=== PATIENT | female | born 1965 | race Caucasian/White ===

== ENCOUNTER 2017-02-18 08:35 | Emergency (ER) | payer OTHER ==
[2017-02-18] MEDS ORDERED: SODIUM CHLORIDE 0.9% 1,000 ML IV ONE (09:00)
--- NOTE | 2017-02-18 09:18 | ED ---
Female Urogenital HPI - General Chief complaint: Vaginal Bleeding Stated complaint: FEMALE Time Seen by Provider: 02/18/17 08:50 Source: patient, RN notes reviewed Mode of arrival: ambulatory Limitations: no limitations - History of Present Illness Initial comments: 51-year-old female presents emergency Department chief complaint vaginal bleeding. Patient states she's been having bleeding for the last 2 and half weeks. She states she had a normal menstrual cycle that was approximately one week long stopped for 1 day insert rebleeding. Patient states the bleeding today is worse. She states she is passing large clots and states that she is bleeding through one to 2 pads at a time and having to change every 40 minutes. Patient states that she does not feel lightheaded or dizzy at this time. Denies any shortness of breath or chest pain. Patient denies any nausea, vomiting, diarrhea constipation. Patient states that she's had a prior bowel resection and in the past. Patient states she does takes for also currently because of history of blood clots after her surgery. Patient states that she's never had any bleeding like this in the past. She states she has mild abdominal cramping lower aspect. Last Menstrual Period: 02/18/17 - Related Data Home Medications Medication Instructions Recorded Confirmed Digoxin [Lanoxin] 250 mcg PO DAILY 02/18/17 02/18/17 Furosemide [Lasix] 40 mg PO DAILY 02/18/17 02/18/17 HYDROcodone/APAP 10-325MG [[place] 1 tab PO Q4HR PRN 02/18/17 02/18/17 10-325] Metoprolol Tartrate [Lopressor] 50 mg PO BID 02/18/17 02/18/17 QUEtiapine FUMARATE [SEROquel] 200 mg PO HS 02/18/17 02/18/17 QUEtiapine [SEROquel] 50 mg PO HS 02/18/17 02/18/17 Rivaroxaban [Xarelto] 20 mg PO HS 02/18/17 02/18/17 Spironolactone [Aldactone] 25 mg PO HS 02/18/17 02/18/17 Topiramate [Topamax] 25 mg PO HS 02/18/17 02/18/17 Allergies Allergy/AdvReac Type Severity Reaction Status Date / Time warfarin sodium Allergy GETS RED Verified 02/18/17 09:09 [From Coumadin] BUMPS ALL OVER Review of Systems ROS Statement: Those systems with pertinent positive or pertinent negative responses have been documented in the HPI. ROS Other: All systems not noted in ROS Statement are negative. Past Medical History Past Medical History: Heart Failure, CVA/TIA, Deep Vein Thrombosis (DVT), Hypertension, Pulmonary Embolus (PE) Additional Past Medical History / Comment(s): BACK ISSUES, IRREGULAR HEART BEAT , BOWEL OBSTRUCTION History of Any Multi-Drug Resistant Organisms: None Reported Past Surgical History: Appendectomy, Bowel Resection, Section Additional Past Surgical History / Comment(s): RIGHT FALLOPIAN TUBE REMOVED, PREVIOUS BOWEL OBSTRUCTION Past Anesthesia/Blood Transfusion Reactions: No Reported Reaction Past Psychological History: No Psychological Hx Reported Smoking Status: Never smoker Past Alcohol Use History: None Reported Past Drug Use History: None Reported General Exam Limitations: no limitations General appearance: alert, in no apparent distress Head exam: Present: atraumatic, normocephalic, normal inspection Respiratory exam: Present: normal lung sounds bilaterally. Absent: respiratory distress, wheezes, rales, rhonchi, stridor Cardiovascular Exam: Present: regular rate, normal rhythm, normal heart sounds. Absent: systolic murmur, diastolic murmur, rubs, gallop, clicks GI/Abdominal exam: Present: soft, normal bowel sounds. Absent: distended, tenderness, guarding, rebound, rigid Neurological exam: Present: alert, oriented X3, CN II-XII intact Skin exam: Present: warm, dry, normal color Course Vital Signs 02/18/17 08:37 Temperature 97.1 F L Pulse Rate 90 Respiratory 20 Rate Blood Pressure 147/67 O2 Sat by Pulse 98 Oximetry Medical Decision Making - Medical Decision Making 51-year-old female presents emergency department for vaginal bleeding. Patient' s hemoglobin is within normal limits. Patient does have thickened endometrial lining and dysfunctional uterine bleeding at this time. Refuses discussed in length yet patient is taking Xarelto currently she needs to contact Dr. Marleen stevenson and Dr. Vuong. Patient's will contact them to decide if she should discontinue at this time. Patient does not have any symptoms which include dizziness, shortness breath, chest pain or lightheadedness. Patient does not want pelvic exam this time secondary to bleeding. Discussed return parameters and close follow-up. - Lab Data Result diagrams: 02/18/17 09:51 02/18/17 09:51 Lab Results 02/18/17 02/18/17 02/18/17 Range/Units 09:51 09:51 09:51 WBC 5.9 (3.8-10.6) k/uL RBC 4.54 (3.80-5.40) m/uL Hgb 14.1 (11.4-16.0) gm/dL Hct 41.1 (34.0-46.0) % MCV 90.5 (80.0-100.0) fL MCH 31.0 (25.0-35.0) pg MCHC 34.2 (31.0-37.0) g/dL RDW 13.4 (11.5-15.5) % Plt Count 219 (150-450) k/uL Neutrophils % 53 % Lymphocytes % 32 % Monocytes % 7 % Eosinophils % 3 % Basophils % 1 % Neutrophils # 3.1 (1.3-7.7) k/uL Lymphocytes # 1.9 (1.0-4.8) k/uL Monocytes # 0.4 (0-1.0) k/uL Eosinophils # 0.2 (0-0.7) k/uL Basophils # 0.1 (0-0.2) k/uL PT (9.0-12.0) sec INR (<1.1) APTT (22.0-30.0) sec Sodium 142 (137-145) mmol/L Potassium 4.0 (3.5-5.1) mmol/L Chloride 108 H (98-107) mmol/L Carbon Dioxide 21 L (22-30) mmol/L Anion Gap 13 mmol/L BUN 8 (7-17) mg/dL Creatinine 0.66 (0.52-1.04) mg/dL Est GFR (MDRD) Af Amer >60 (>60 ml/min/1.73 sqM) Est GFR (MDRD) Non-Af >60 (>60 ml/min/1.73 sqM) Glucose 139 H (74-99) mg/dL Calcium 9.3 (8.4-10.2) mg/dL Blood Type AB Positive Blood Type Recheck No Antibody Screen NEGATIVE Spec Expiration Date 02/21/2017 - 235002/18/17 Range/Units 09:51 WBC (3.8-10.6) k/uL RBC (3.80-5.40) m/uL Hgb (11.4-16.0) gm/dL Hct (34.0-46.0) % MCV (80.0-100.0) fL MCH (25.0-35.0) pg MCHC (31.0-37.0) g/dL RDW (11.5-15.5) % Plt Count (150-450) k/uL Neutrophils % % Lymphocytes % % Monocytes % % Eosinophils % % Basophils % % Neutrophils # (1.3-7.7) k/uL Lymphocytes # (1.0-4.8) k/uL Monocytes # (0-1.0) k/uL Eosinophils # (0-0.7) k/uL Basophils # (0-0.2) k/uL PT 11.3 (9.0-12.0) sec INR 1.1 (<1.1) APTT 25.5 (22.0-30.0) sec Sodium (137-145) mmol/L Potassium (3.5-5.1) mmol/L Chloride (98-107) mmol/L Carbon Dioxide (22-30) mmol/L Anion Gap mmol/L BUN (7-17) mg/dL Creatinine (0.52-1.04) mg/dL Est GFR (MDRD) Af Amer (>60 ml/min/1.73 sqM) Est GFR (MDRD) Non-Af (>60 ml/min/1.73 sqM) Glucose (74-99) mg/dL Calcium (8.4-10.2) mg/dL Blood Type Blood Type Recheck Antibody Screen Spec Expiration Date Disposition Clinical Impression: Dysfunctional uterine bleeding, Menorrhagia Disposition: HOME SELF-CARE Condition: Stable Instructions: Dysfunctional Uterine Bleeding (ED) Additional Instructions: Please return to the Emergency Department if symptoms worsen or any other concerns. Time of Disposition: 11:29
[2017-02-18 10:13] LABS: Basophils # (A) 0.1 k/uL (0-0.2); Basophils % (A) 1 %; CH 32.2; CHCM 35.7; Eosinophils # (A) 0.2 k/uL (0-0.7); Eosinophils % (A) 3 %; HCT 41.1 % (34.0-46.0); HDW 2.86; HGB 14.1 gm/dL (11.4-16.0); Luc # (Auto) 0.24; Luc % (Auto) 4; Lymphocytes # (A) 1.9 k/uL (1.0-4.8); Lymphocytes % (A) 32 %; MCHC 34.2 g/dL (31.0-37.0); MCV 90.5 fL (80.0-100.0); Mean Platelet Volume 6.7; Monocytes # (A) 0.4 k/uL (0-1.0); Monocytes % (A) 7 %; Neutrophils # (A) 3.1 k/uL (1.3-7.7); Neutrophils % (A) 53 %; RBC 4.54 m/uL (3.80-5.40); RDW 13.4 % (11.5-15.5); WBC 5.9 k/uL (3.8-10.6); WBC (Perox) 5.92
[2017-02-18 10:14] LABS: Anion Gap 13 mmol/L; Blood Urea Nitrogen 8 mg/dL (7-17); Calcium 9.3 mg/dL (8.4-10.2); Carbon Dioxide 21 mmol/L (22-30); Chloride 108 mmol/L (98-107); Glucose 139 mg/dL (74-99); Non-African American GFR(MDRD) >60 (>60 ml/min/1.73 sqM); Sodium 142 mmol/L (137-145)
[2017-02-18 10:37] LABS: INR 1.1 (<1.1); Partial Thromboplastin Time 25.5 sec (22.0-30.0); Prothrombin Time 11.3 sec (9.0-12.0)
--- NOTE | 2017-02-18 11:05 | US ---
EXAMINATION TYPE: US transvaginal DATE OF EXAM: 02/18/2017 10:17 AM COMPARISON: Prior transvaginal ultrasound 23 June 2015 CLINICAL HISTORY: Pain. Bleeding x 2 weeks with clots, patient on blood thinners, history of c-sectio n, 3, para 2, miscarriage 1 TECHNIQUE: Transvaginal (TV) Date of LMP: 02/06/17 EXAM MEASUREMENTS: Uterus: 10.2 x 5.6 x 7.1 cm Endometrial Stripe: 0.9 cm Right Ovary: not seen Left Ovary: not seen 1. Uterus: anteverted, slightly enlarged at 10.2cm, heterogeneous, 2 cystic areas mid uterus with la rgest measuring 0.8cm, multiple nabothian cysts, findings are similar to prior exam 2. Endometrium: Correlate for appropriate days of patient's follicular cycle 3. Right Ovary: not seen due to overlying bowel gas 4. Left Ovary: not seen due to overlying bowel gas 5. Bilateral Adnexa: wnl 6. Posterior cul-de-sac: wnl IMPRESSION: Similar findings within the uterus to prior exam. Limited exam, ovaries are not visualize d. Additional findings above. Correlate for appropriate phase patient's follicular cycle.
[2017-02-18 11:38] LABS: Appearance,Urine Turbid (Clear); Bilirubin,Urine Negative (Negative); Glucose,Urine (UA) Negative (Negative); Ketones,Urine 1+ (Negative); Leukocyte Esterase,Urine Small (Negative); Mucus,Urine Many /hpf; Nitrite,Urine Negative (Negative); PH, Urine 5.5 (5.0-8.0); Particle Count 8198; Protein,Urine 1+ (Negative); RBC,Urine >182 /hpf (0-5); Specific Gravity,Urine 1.022 (1.001-1.035); UA Billing (MACRO vs. MICRO) MICRO; Urobilinogen,Urine <2.0 mg/dL (<2.0); WBC,Urine >182 /hpf (0-5)
[2017-02-18 11:39] VITALS: BP 132/81; PULSE 82; RESP 16; TEMP 97.7
== END 2017-02-18 11:51 | disposition home or self-care (01) ==
LOC: EC 08:35
DX: N92.0 Excessive and frequent menstruation with regular cycle (principal); I50.9 Heart failure, unspecified; I10 Essential (primary) hypertension; Z53.20 Procedure and treatment not carried out because of patient's decision for unspecified reasons; Z79.01 Long term (current) use of anticoagulants; Z79.899 Other long term (current) drug therapy; Z88.8 Allergy status to other drugs, medicaments and biological substances; Z86.718 Personal history of other venous thrombosis and embolism; Z86.711 Personal history of pulmonary embolism
CPT/HCPCS: 36415; 76830; 80048; 81001; 81025; 85025; 85610; 85730; 86850; 86900; 86901; 99284

== ENCOUNTER → 2017-08-23 | Outpatient (CLI) | payer OTHER ==
[2017-08-23 13:01] LABS: CH 33.1; CHCM 35.5; HCT 47.8 % (34.0-46.0); HDW 2.67; MCH 31.4 pg (25.0-35.0); MCHC 33.5 g/dL (31.0-37.0); MCV 93.6 fL (80.0-100.0); Mean Platelet Volume 7.5; RBC 5.11 m/uL (3.80-5.40); RDW 14.4 % (11.5-15.5); WBC 8.9 k/uL (3.8-10.6)
[2017-08-23 13:18] LABS: Anion Gap 14 mmol/L; Blood Urea Nitrogen 14 mg/dL (7-17); Carbon Dioxide 18 mmol/L (22-30); Chloride 107 mmol/L (98-107); Non-African American GFR(MDRD) >60 (>60 ml/min/1.73 sqM); Potassium 4.3 mmol/L (3.5-5.1); Sodium 139 mmol/L (137-145)
== END | disposition home or self-care (01) ==
LOC: LABPAT 12:24
PROVIDERS: ATTEND Internal Medicine Cardiovascular Disease
DX: Z01.812 Encounter for preprocedural laboratory examination (principal); I42.0 Dilated cardiomyopathy
CPT/HCPCS: 36415; 80051; 82565; 84520; 85027

== ENCOUNTER → 2017-08-25 | Day surgery (SDC) | payer OTHER ==
[2017-08-23 11:13] VITALS: BMI 32.8
[~2017-08-25] MED LIST: ALPRAZolam 0.25 MG TAB PO PRN; ALPRAZolam 0.5 MG TAB PO PRN; ASPIRIN 325 MG TAB PO STA; ATORVASTATIN 80 MG TAB PO STA; HYDROcodone/APAP 10-325MG 1 EACH TAB ONE; HYDROmorphone 2 MG/ML 1 ML SYRINGE IV ONE; IOHEXOL 350 MG/ML 125ML BOTTLE INJ ONE; LIDOCAINE 2% INJ 20 MG/ML SQ ONE; MIDAZOLAM 2 MG/2 ML VIAL IV ONE; NITROGLYCERIN SL TABS 0.4 MG TAB SUBLINGUAL PRN; RX INFO: IV CONTRAST WAS GIVEN 1 EACH MISC MISCELLANE PRN; SODIUM CHLORIDE 0.9% 1,000 ML IV SCH; SODIUM CHLORIDE 0.9% 1,000 ML in EMPTY BAG 1 BAG IV ONE
[2017-08-25 06:58] VITALS: TEMP 98.5
--- NOTE | 2017-08-25 08:09 | P.OP ---
Date of Procedure: 08/25/17 Anesthesia: MAC (Total sedation time of 17 minutes) Indications for Procedure: Dilated cardiomyopathy Operative Findings: Referring Physician: [Marleen] Indication: Dilated cardiomyopathy Procedure Note: [] After obtaining informed consent left heart catheterization and coronary angiogram were performed via the right femoral artery using standard Ji catheters. Patient tolerated the procedure well without any obvious immediate complications. A femoral angiogram was obtained and Angio-Seal was deployed for hemostasis. Patient received moderate conscious sedation total sedation time was 17 minutes Findings: [] Hemodynamics: Left ventricular end-diastolic pressure is 18 mm there is no significant gradient across aortic valve Left Ventriculogram: [Not performed] Angiographic Data:] #1 Left Main Coronary Artery: [Normal size vessel and is free of stenosis] #2 Left Anterior Descending Coronary Artery: [Normal vessel and diagonal branches are free of stenosis as is the LAD] #3 Circumflex Coronary Artery: Codominant vessel and is free of stenosis #4 Right Coronary Artery: [Large dominant vessel and is free of stenosis] Conclusions: #1: [Normal coronary arteries] #2: Elevated left ventricular end-diastolic pressure Plan: Patient has nonischemic cardiomyopathy and management per primary director of critical care
[2017-08-25 09:19] VITALS: RESP 18
[2017-08-25 09:20] VITALS: BP 106/70; PULSE 96
== END ==
LOC: CATHCVL 06:24
PROVIDERS: ATTEND Internal Medicine Cardiovascular Disease
DX: I42.0 Dilated cardiomyopathy (principal); I11.0 Hypertensive heart disease with heart failure; I50.22 Chronic systolic (congestive) heart failure; Z82.49 Family history of ischemic heart disease and other diseases of the circulatory system; Z86.711 Personal history of pulmonary embolism; Z79.01 Long term (current) use of anticoagulants; Z79.899 Other long term (current) drug therapy; Z88.8 Allergy status to other drugs, medicaments and biological substances; Z91.02 Food additives allergy status; Z91.040 Latex allergy status
CPT/HCPCS: 93458; 81025; C1760; C1894; C1769; J2001; J2250; J1170; Q9967

== ENCOUNTER → 2018-06-28 | Outpatient (CLI) | payer OTHER ==
--- NOTE | 2018-06-29 12:25 | MM ---
Reason for exam: screening (asymptomatic). Last mammogram was performed 3 years and 4 months ago. History: Family history of breast cancer in maternal aunt, breast cancer in mother at age 50, breast cancer in paternal aunt, and breast cancer in maternal grandmother. Benign excisional biopsy of the left breast, 2009. Physical Findings: A clinical breast exam by your physician is recommended on an annual basis and results should be correlated with mammographic findings. MG 3D Screening Mammo W/Cad Bilateral CC and MLO view(s) were taken. Prior study comparison: March 04, 2015, bilateral MG diagnostic mammo w CAD EDIL[facility]ERTO. July 23, 2014, left breast MG diagnostic mammo LT w CAD. The breast tissue is heterogeneously dense. This may lower the sensitivity of mammography. No suspicious abnormality. Post biopsy change on the left. No significant changes when compared with prior studies. ASSESSMENT: Benign, BI-RAD 2 RECOMMENDATION: Routine screening mammogram of both breasts in 1 year.
== END ==
LOC: RADMAMWWP 16:27
PROVIDERS: ATTEND Internal Medicine
DX: Z12.31 Encounter for screening mammogram for malignant neoplasm of breast (principal)
CPT/HCPCS: 77063; 77067

== ENCOUNTER → 2018-06-29 | Outpatient (CLI) | payer OTHER ==
--- NOTE | 2018-06-29 15:55 | US ---
EXAMINATION TYPE: US pelvic complete DATE OF EXAM: 06/29/2018 COMPARISON: US 02/18/2017 CLINICAL HISTORY: N92.0 FREQ MENSTRUATION WITH REGULAR CYCLES. TECHNIQUE: . Transabdominal sonographic images of the pelvis were acquired. Patient declined transv aginal imaging at this time. Date of LMP: 06/04/2018 EXAM MEASUREMENTS: Uterus: 10.6 x 5.6 x 6.8 cm Endometrial Stripe: 1.3 cm Right Ovary: 4.0 x 2.0 x 3.0 cm Left Ovary: 2.8 x 1.2 x 1.8 cm 1. Uterus: Anteverted Heterogeneous myometrium 2. Endometrium: wnl 3. Right Ovary: Cystic area visualized measuring 1.9 x 1.7 x 1.7 cm 4. Left Ovary: wnl 5. Bilateral Adnexa: wnl 6. Posterior cul-de-sac: wnl IMPRESSION: Myometrium is upper limits of normal for the patient's age, however within normal limits for a premenopausal female. Correlation with perimenopausal status is recommended.
== END | disposition home or self-care (01) ==
LOC: RADUSWWP 14:37
PROVIDERS: ATTEND Family Medicine
DX: N92.0 Excessive and frequent menstruation with regular cycle (principal)
CPT/HCPCS: 76856

== ENCOUNTER → 2019-01-19 | Outpatient (CLI) | payer OTHER | LOC: LABWHC1 15:35 | PROVIDERS: ATTEND Nurse Practitioner Adult Health | DX: E78.5 Hyperlipidemia, unspecified (principal) | CPT/HCPCS: 36415; 80061 ==

== ENCOUNTER → 2021-04-22 | Outpatient (CLI) | payer OTHER ==
--- NOTE | 2021-04-23 11:12 | BD ---
EXAMINATION TYPE: Axial Bone Density DATE OF EXAM: 04/22/2021 COMPARISON: NONE CLINICAL HISTORY: Postmenopausal female. Height: 5 FT 8 IN Weight: 222 FRAX RISK QUESTIONS: Alcohol (3 or more units per day): NO Family History (Parent hip fracture): NO Glucocorticoids (More than 3mos): NO (Ex: prednisone, prednisolone, methylprednisolone, dexamethasone, and hydrocortisone). History of Fracture in Adulthood: NO Secondary Osteoporosis: 1. Type 1 Diabetes: NO 2. Hyperthyroidism: NO 3. Menopause before 45: NO 4. Malnutrition: NO 5. Chronic liver disease: NO Rheumatoid Arthritis: NO Current Tobacco Use: NO RISK FACTORS HISTORY OF: Surgery to Spine/Hip(right/left)/Wrist (right/left): NO Family History of Osteoporosis: NO Active: YES Diet low in dairy products/other sources of calcium: NO Postmenopausal woman: AGE 53 Take estrogen and/or progesterone medications: NO Lost more than 2 inches in height since high school: NO Poor Health: FAIR MEDICATIONS: Additional Medications: CARVEDILOL,LOSARTAN, SPIRONOLACTONE, XARELTO, KLONOPIN, NORCO, LASIX Additional History: EXAM MEASUREMENTS: Bone mineral densitometry was performed using the [employer] System. Bone mineral density as measured about the Lumbar spine is: ----- L1-L4(G/cm2): 1.751 T Score Values are as follows: ----- L2: 4.7 ----- L3: 5.5 ----- L4: 5.7 ----- L1-L4: 4.8 BASELINE Bone mineral density about the R hip (g/cm2): 0.926 Bone mineral density about the L hip (g/cm2): 0.991 T Score values are as follows: -----R Neck: -0.8 -----L Neck: -0.3 -----R Total: -0.4 -----L Total: -0.3 BASELINE IMPRESSION: Normal (Values between +1 and -1 indicate normal bone mass). Consider repeating this study in 5 year s or sooner if there is some new clinical indication. NOTE: T-SCORE=SD OF THE YOUNG ADULT MEAN.
--- NOTE | 2021-04-23 14:39 | MM ---
Reason for exam: screening (asymptomatic). Last mammogram was performed 2 years and 10 months ago. History: Family history of breast cancer in maternal aunt, breast cancer in mother at age 50, breast cancer in paternal aunt, and breast cancer in maternal grandmother. Benign excisional biopsy of the left breast, 2009. Physical Findings: A clinical breast exam by your physician is recommended on an annual basis and results should be correlated with mammographic findings. MG Screening Mammo w CAD Bilateral CC and MLO view(s) were taken. Prior study comparison: June 28, 2018, bilateral MG 3d screening mammo w/cad. March 04, 2015, bilateral MG diagnostic mammo w CAD ED[facility]ERT[facility]. The breast tissue is heterogeneously dense. This may lower the sensitivity of mammography. ASSESSMENT: Benign, BI-RAD 2 RECOMMENDATION: Routine screening mammogram of both breasts in 1 year.
== END | disposition home or self-care (01) ==
LOC: RADMAMWWP 15:19
PROVIDERS: ATTEND Internal Medicine
DX: Z12.31 Encounter for screening mammogram for malignant neoplasm of breast (principal); Z80.3 Family history of malignant neoplasm of breast; Z78.0 Asymptomatic menopausal state
CPT/HCPCS: 77067; 77080

== ENCOUNTER → 2021-08-19 | Outpatient (CLI) | payer OTHER ==
[2021-08-19 15:03] LABS: HCT 43.5 % (37.2-46.3); HGB 14.6 g/dL (12.0-15.0); MCH 30.5 pg (27.0-32.0); MCHC 33.6 g/dL (32.0-37.0); MCV 90.8 fL (80.0-97.0); Mean Platelet Volume 10.2 fL (9.5-12.2); Platelet Count 243 X 10*3/uL (140-440); RBC 4.79 X 10*6/uL (4.10-5.20); RDW 13.5 % (11.5-14.5); WBC 6.02 X 10*3/uL (4.50-10.00)
[2021-08-19 20:14] LABS: African American GFR (CKD) 96.9 (60.0-200.0); Albumin 4.9 g/dL (3.80-4.90); Albumin/Globulin Ratio 2.04 (1.60-3.17); Anion Gap 12.4 mmol/L (4.00-12.00); BUN/Creat Ratio 23.75 Ratio (12.00-20.00); Calcium 9.5 mg/dL (8.7-10.3); Carbon Dioxide 17.6 mmol/L (21.6-31.8); Chol/HDL Ratio 5.7; Globulin 2.4 g/dL (1.6-3.3); Magnesium 1.8 mg/dL (1.5-2.4); Non-African American GFR(CKD) 83.6 (60.0-200.0); Potassium 4.3 mmol/L (3.5-5.5); Total Bilirubin 0.4 mg/dL (0.3-1.2); Total Protein 7.3 g/dL (6.2-8.2)
== END | disposition home or self-care (01) ==
LOC: LABWHC1 09:31
PROVIDERS: ATTEND Nurse Practitioner Adult Health
DX: I10 Essential (primary) hypertension (principal); I49.3 Ventricular premature depolarization; E78.5 Hyperlipidemia, unspecified
CPT/HCPCS: 36415; 80053; 80061; 83721; 83735; 84443; 84481; 85027

== ENCOUNTER 2021-08-24 13:14 | Emergency (ER) | payer OTHER ==
[2021-08-24 14:06] VITALS: BP 130/73; PULSE 84; RESP 18; TEMP 98.2
[2021-08-24] MEDS ORDERED: IBUPROFEN 800 MG TAB PO STA (14:14)
--- NOTE | 2021-08-24 14:40 | XR ---
EXAMINATION TYPE: XR foot complete RT DATE OF EXAM: 08/24/2021 COMPARISON: NONE HISTORY: Pain TECHNIQUE: 3 views FINDINGS: There is apparent old osteotomy of the fifth metatarsal head. There is spurring at the base of the proximal phalanx of the little toe. There is nondisplaced oblique fracture through the proxim al phalanx of the little toe. There is no dislocation. There is plantar and Achilles calcaneal spurri ng. IMPRESSION: Acute fracture of the proximal phalanx of the little toe right foot without displacement. Fracture line extends to the MP joints.
--- NOTE | 2021-08-24 15:35 | ED ---
Lower Extremity Injury HPI - General Chief Complaint: Extremity Injury, Lower Stated Complaint: toe injury Time Seen by Provider: 08/24/21 14:08 Source: patient Mode of arrival: ambulatory Limitations: no limitations - History of Present Illness Initial Comments: Patient presents with an injury to the right foot. She has some pain. She has no paresthesias. She has no weakness. She has no other injuries. She rates the pain 4/10. The pain doesn't radiate anywhere. She took no medicine for this. - Related Data Home Medications Medication Instructions Recorded Confirmed Furosemide [Lasix] 40 mg PO DAILY 02/18/17 08/25/17 HYDROcodone/APAP 10-325MG [[place] 1 tab PO Q4HR PRN 02/18/17 08/25/17 10-325] QUEtiapine FUMARATE [SEROquel] 250 mg PO HS 02/18/17 08/25/17 Rivaroxaban [Xarelto] 20 mg PO HS 02/18/17 08/25/17 Spironolactone [Aldactone] 25 mg PO DAILY 02/18/17 08/25/17 Losartan [Cozaar] 25 mg PO DAILY 08/23/17 08/25/17 Pravastatin Sodium [Pravachol] 20 mg PO DAILY 08/23/17 08/25/17 carvediloL [Coreg] 3.125 mg PO BID 08/23/17 08/25/17 Allergies Allergy/AdvReac Type Severity Reaction Status Date / Time latex Allergy Swelling Verified 08/24/21 14:06 warfarin sodium Allergy GETS RED Verified 08/24/21 14:06 [From Coumadin] BUMPS ALL OVER Review of Systems ROS Statement: Those systems with pertinent positive or pertinent negative responses have been documented in the HPI. ROS Other: All systems not noted in ROS Statement are negative. Past Medical History Past Medical History: Heart Failure, CVA/TIA, Deep Vein Thrombosis (DVT), Hypertension, Pulmonary Embolus (PE) Additional Past Medical History / Comment(s): BACK ISSUES, IRREGULAR HEART BEAT, BOWEL OBSTRUCTION History of Any Multi-Drug Resistant Organisms: None Reported Past Surgical History: Appendectomy, Bowel Resection, Section Additional Past Surgical History / Comment(s): RIGHT FALLOPIAN TUBE REMOVED, PREVIOUS BOWEL OBSTRUCTION Past Anesthesia/Blood Transfusion Reactions: No Reported Reaction Past Psychological History: Anxiety, Depression Smoking Status: Former smoker Past Alcohol Use History: None Reported Past Drug Use History: None Reported - Past Family History Father Family Medical History: Coronary Artery Disease (CAD) Additional Family Medical History / Comment(s): "open heart surgery triple bypass" Mother Family Medical History: Pulmonary Embolus General Exam Limitations: no limitations Head exam: Present: atraumatic Extremities exam: Present: tenderness Skin exam: Present: other (Bruising right foot) Course Vital Signs 08/24/21 14:04 Temperature 98.2 F Pulse Rate 84 Respiratory 18 Rate Blood Pressure 130/73 O2 Sat by Pulse 98 Oximetry Medical Decision Making - Medical Decision Making Patient presents with an injury to the right foot. X-rays are negative. She is neurovascularly intact. She is stable for discharge. Disposition Clinical Impression: Contusion Disposition: HOME SELF-CARE Condition: Good Instructions (If sedation given, give patient instructions): Foot Contusion (ED) Is patient prescribed a controlled substance at d/c from ED?: No Referrals: Birdie Hawley MD [Primary Care Provider] - 1-2 days
== END 2021-08-24 15:57 | disposition home or self-care (01) ==
LOC: EC 13:14
DX: S90.31XA Contusion of right foot, initial encounter (principal); I11.0 Hypertensive heart disease with heart failure; I50.9 Heart failure, unspecified; F32.9 Major depressive disorder, single episode, unspecified; F41.9 Anxiety disorder, unspecified; Z86.711 Personal history of pulmonary embolism; Z86.718 Personal history of other venous thrombosis and embolism; Z86.73 Personal history of transient ischemic attack (TIA), and cerebral infarction without residual deficits; Z87.891 Personal history of nicotine dependence; Z98.891 History of uterine scar from previous surgery; Z79.01 Long term (current) use of anticoagulants; Z90.49 Acquired absence of other specified parts of digestive tract; Z90.79 Acquired absence of other genital organ(s); Z91.040 Latex allergy status; X58.XXXA Exposure to other specified factors, initial encounter
CPT/HCPCS: 99283

== ENCOUNTER → 2022-10-21 | Outpatient (CLI) | payer OTHER ==
--- NOTE | 2022-10-21 14:03 | XR ---
EXAMINATION TYPE: XR cervical spine comp DATE OF EXAM: 10/21/2022 COMPARISON: NONE HISTORY: Pain TECHNIQUE: Four views are submitted. FINDINGS: The odontoid is intact. There are no compression deformities. The prevertebral soft tissue structur es are within normal limits. There is multilevel hypertrophic changes with a large anterior osteophy cy in the bilateral C2-C7. Multilevel moderate to severe degenerative disc disease most marked at C5 -6 and C6-C7. There is multilevel severe facet arthropathy. Suspect multilevel bilateral foraminal ca rotid IMPRESSION: 1. Multilevel moderate to severe degenerative disc disease and facet arthropathy resulting in multile kaitlyn foraminal encroachment recommend follow-up MRI.
--- NOTE | 2022-10-21 14:34 | XR ---
EXAM TYPE: LUMBAR SPINE X RAY SERIES COMPARISON: NONE HISTORY: Obtained TECHNIQUE: 4 views are submitted. FINDINGS: Alignment is anatomic. The pedicles are intact. The transverse processes are intact. There is larg e anterior hypertrophic spurs at multiple levels with multilevel severe facet arthropathy and moderat e to severe multilevel degenerative disc disease. Slight curvature of the spine. Diffuse osteopenia IMPRESSION: 1. Scoliosis with moderate to severe multilevel degenerative disc disease and facet arthropathy. Susp ect multilevel foraminal encroachment. Consider follow-up MRI.
== END | disposition home or self-care (01) ==
LOC: RADXRMAIN 12:52
PROVIDERS: ATTEND Physical Medicine & Rehabilitation
DX: M51.36 Other intervertebral disc degeneration, lumbar region (principal); M48.061 Spinal stenosis, lumbar region without neurogenic claudication; M47.816 Spondylosis without myelopathy or radiculopathy, lumbar region; M54.50 Low back pain, unspecified; M54.2 Cervicalgia
CPT/HCPCS: 72050; 72110

== ENCOUNTER → 2023-12-01 | Outpatient (CLI) | payer OTHER ==
--- NOTE | 2023-12-03 17:14 | MM ---
Reason for Exam: Screening (asymptomatic). Last mammogram was performed 2 year(s) and 8 month(s) ago. Patient History: Menarche at age 15. First Full-Term at age 22. 2009, Benign Excisional Biopsy on the left side. Maternal grandmother had breast cancer. Paternal aunt had breast cancer. Maternal aunt had breast cancer. Mother had breast cancer, age 50. Risk Values: Aracelis 5 year model risk: 2.8%. NCI Lifetime model risk: 17.3%. Prior Study Comparison: 03/04/2015 Bilateral Diagnostic Mammogram, [facility]. 06/28/2018 Bilateral Screening Mammogram, [facility]. 04/22/2021 Bilateral Screening Mammogram, [facility]. Tissue Density: There are scattered fibroglandular densities. Findings: Analyzed By CAD. Pattern appears symmetrical stable. No significant interval change is evident. Chronic nodularity is within the left breast. Left breast is smaller than the right. No suspicious groups of microcalcifications, spiculated or lobular masses, architectural distortion or other secondary signs of malignancy are mammographically apparent. Overall Assessment: Benign, BI-RAD 2 Management: Screening Mammogram of both breasts in 1 year. A negative mammogram report should not preclude additional follow up of suspicious palpable abnormalities. Patient should continue monthly self breast exam. A clinical breast exam by your physician is recommended on an annual basis and results should be correlated with mammographic findings. Electronically signed and approved by: Shmuel Mccarty D.O. Radiologis
== END | disposition home or self-care (01) ==
LOC: RADMAMWWP 13:49
PROVIDERS: ATTEND Student in an Organized Health Care Education/Training Program
DX: Z12.31 Encounter for screening mammogram for malignant neoplasm of breast (principal); Z80.3 Family history of malignant neoplasm of breast
CPT/HCPCS: 77067

== ENCOUNTER → 2023-12-13 | Outpatient (CLI) | payer OTHER ==
[2023-12-13 15:55] LABS: Basophils # (A) 0.05 X 10*3/uL (0.00-0.10); Basophils % (A) 0.8 %; Eosinophils # (A) 0.23 X 10*3/uL (0.04-0.35); Eosinophils % (A) 3.8 %; HCT 44.1 % (37.2-46.3); HGB 15.1 g/dL (12.0-15.0); Lymphocytes # (A) 2.15 X 10*3/uL (0.90-5.00); Lymphocytes % (A) 35.4 %; MCH 30.7 pg (27.0-32.0); MCHC 34.2 g/dL (32.0-37.0); MCV 89.6 FL (80.0-97.0); Mean Platelet Volume 9.9 FL (9.5-12.2); Monocytes # (A) 0.53 X 10*3/uL (0.20-1.00); Monocytes % (A) 8.7 %; NRBC Per 100 WBC 0 X 10*3/uL (0.00-0.01); Neutrophils # (A) 3.08 X 10*3/uL (1.80-7.70); Neutrophils % (A) 50.8 %; Platelet Count 212 X 10*3/uL (140-440); RBC 4.92 X 10*6/uL (4.10-5.20); RDW 13.2 % (11.5-14.5); WBC 6.07 X 10*3/uL (4.50-10.00)
[2023-12-13 16:45] LABS: Chol/HDL Ratio 6.52 Ratio; HDL Cholesterol 38.2 mg/dL (40.00-60.00); VLDL Calculation 90.4 mg/dL (5.00-40.00)
== END | disposition home or self-care (01) ==
LOC: LABWHC1 10:53
PROVIDERS: ATTEND Student in an Organized Health Care Education/Training Program
DX: E11.9 Type 2 diabetes mellitus without complications (principal); E78.2 Mixed hyperlipidemia; E55.9 Vitamin D deficiency, unspecified
CPT/HCPCS: 36415; 80061; 82306; 83036; 83721; 85025

== ENCOUNTER → 2024-04-17 | Outpatient (CLI) | payer OTHER ==
[2024-04-17 19:35] LABS: ALT 27 U/L (8-44); AST 25 U/L (13-35); Albumin 4.7 g/dL (3.8-4.9); Albumin/Globulin Ratio 1.68 Ratio (1.60-3.17); Alkaline Phosphatase 66 U/L (41-126); Blood Urea Nitrogen 13.3 mg/dL (9.0-27.0); Calcium 9.9 mg/dL (8.7-10.3); Carbon Dioxide 23.8 mmol/L (21.6-31.8); Chloride 105 mmol/L (96-109); Globulin 2.8 g/dL (1.6-3.3); Glucose 128 mg/dL (70-110); LDL Cholesterol,Calculated 127.4 mg/dL (0.0-131.0); Potassium 4.8 mmol/L (3.5-5.5); Sodium 140 mmol/L (135-145); Total Bilirubin 0.4 mg/dL (0.3-1.2); Total Protein 7.5 g/dL (6.2-8.2)
== END | disposition home or self-care (01) ==
LOC: LABWHC1 13:01
PROVIDERS: ATTEND Student in an Organized Health Care Education/Training Program
DX: E11.9 Type 2 diabetes mellitus without complications (principal); E55.9 Vitamin D deficiency, unspecified
CPT/HCPCS: 36415; 80053; 80061; 82306; 83036

== ENCOUNTER → 2024-09-21 | Outpatient (CLI) | payer OTHER ==
--- NOTE | 2024-09-21 15:52 | US ---
EXAMINATION TYPE: US venous doppler duplex UE LT DATE OF EXAM: 09/21/2024 COMPARISON: NONE CLINICAL INDICATION: Female, 59 years old with history of LUE; LLE I89.0 LYMPHEDEMA; Left arm area of swelling FINDINGS: Scanned left medial upper arm at patient's area of concern: No solid or cystic mass. IMPRESSION: No solid or cystic mass. Correlate for soft tissue edema. [facility], , 09/21/2024 3:50 PM
--- NOTE | 2024-09-21 16:04 | US ---
EXAMINATION TYPE: US venous doppler duplex LE LT DATE OF EXAM: 09/21/2024 COMPARISON: NONE CLINICAL INDICATION: Female, 59 years old with history of LUE; LLE I89.0 LYMPHEDEMA; Left groin swell ing Scanned left groin at patient's area of concern: multiple lymph nodes seen with largest measuring 2.0 x 0.8 x 1.9cm IMPRESSION: Multiple lymph nodes are seen the largest measuring 2 x 1.9 x 0.8 cm. Correlate for lymp hadenopathy. [facility], , 09/21/2024 4:01 PM
== END | disposition home or self-care (01) ==
LOC: RADUSWWP 15:08
PROVIDERS: ATTEND Family Medicine
DX: I89.0 Lymphedema, not elsewhere classified (principal)

== ENCOUNTER → 2025-01-23 | Outpatient (CLI) | payer OTHER ==
--- NOTE | 2025-01-23 15:37 | MM ---
Reason for Exam: Screening (asymptomatic). Last mammogram was performed 1 year(s) and 1 month(s) ago. Patient History: Menarche at age 15. First Full-Term at age 22. 2010, Benign Excisional Biopsy on the left side. Maternal grandmother had breast cancer. Paternal aunt had breast cancer. Maternal aunt had breast cancer. Mother had breast cancer, age 50. Risk Values: Aracelis 5 year model risk: 2.9%. NCI Lifetime model risk: 16.9%. Prior Study Comparison: 06/28/2018 Bilateral Screening Mammogram, [facility]. 04/22/2021 Bilateral Screening Mammogram, [facility]. 12/01/2023 Bilateral MG screening mammo w CAD, [facility]. Tissue Density: The breasts are almost entirely fatty. Findings: Analyzed By CAD. Right breast: There is no suspicious group of microcalcifications or new suspicious mass. Left breast: There is no suspicious group of microcalcifications or new suspicious mass. Overall Assessment: Negative, BI-RAD 1 Management: Screening Mammogram of both breasts in [address] [facility] will attempt to contact patient to return for supplemental views and ultrasound if indicated. Patient should continue monthly self-breast exams. A clinical breast exam by your physician is recommended on an annual basis. This exam should not preclude additional follow-up of suspicious palpable abnormalities. Note on Aracelis scores and lifetime risk: 1. A Aracelis score greater than 3% is considered moderate risk. If this is the case, consider specialist referral to assess eligibility for a risk reducing agent. 2. If overall lifetime risk for the development of breast cancer is 20% or higher, the patient may qualify for future screening with alternating mammogram and breast MRI. [facility], , 01/23/2025 3:34 PM. Electronically signed and approved by: Kane Key DO
== END | disposition home or self-care (01) ==
LOC: RADMAMWWP 14:40
PROVIDERS: ATTEND Family Medicine
DX: Z12.31 Encounter for screening mammogram for malignant neoplasm of breast (principal); R92.313 Mammographic fatty tissue density, bilateral breasts; Z80.3 Family history of malignant neoplasm of breast
CPT/HCPCS: 77067

== ENCOUNTER 2025-03-04 15:16 | Emergency (ER) | payer OTHER ==
--- NOTE | 2025-03-04 15:56 | ED ---
General Adult HPI - General Chief complaint: Abdominal Pain Stated complaint: abdominal pain Time Seen by Provider: 03/04/25 15:56 Source: patient Mode of arrival: ambulatory Limitations: no limitations - History of Present Illness Initial comments: Patient presents to the ED complaining of having generalized abdominal pain for the past 4 days or so. Patient states that her pain waxes and wanes. Patient states that her pain is currently 6/10 in severity. Patient states that she had a normal bowel movement earlier today. Patient denies trauma or injury, fever or chills, chest pain, dyspnea, dizziness, back pain, nausea or vomiting, diarrhea or constipation, bloody or melanotic stool, dysuria/hematuria/urinary frequency/urinary symptoms, decreased urine output, or any other symptoms or complaints. Patient states that she has been taking Tylenol for her pain without any relief. - Related Data Home Medications Medication Instructions Recorded Confirmed Furosemide [Lasix] 40 mg PO DAILY 02/18/17 08/25/17 HYDROcodone/APAP 10-325MG [[place] 1 tab PO Q4HR PRN 02/18/17 08/25/17 10-325] QUEtiapine FUMARATE [SEROquel] 250 mg PO HS 02/18/17 08/25/17 Rivaroxaban [Xarelto] 20 mg PO HS 02/18/17 08/25/17 Spironolactone [Aldactone] 25 mg PO DAILY 02/18/17 08/25/17 Losartan [Cozaar] 25 mg PO DAILY 08/23/17 08/25/17 Pravastatin Sodium [Pravachol] 20 mg PO DAILY 08/23/17 08/25/17 carvediloL [Coreg] 3.125 mg PO BID 08/23/17 08/25/17 Allergies Allergy/AdvReac Type Severity Reaction Status Date / Time latex Allergy Swelling Verified 03/04/25 15:25 warfarin sodium Allergy GETS RED Verified 03/04/25 15:25 [From Coumadin] BUMPS ALL OVER Review of Systems ROS Statement: Those systems with pertinent positive or pertinent negative responses have been documented in the HPI. ROS Other: All systems not noted in ROS Statement are negative. Past Medical History Past Medical History: Atrial Fibrillation, Heart Failure, Diabetes Mellitus, De ep Vein Thrombosis (DVT), Hypertension, Pulmonary Embolus (PE) Additional Past Medical History / Comment(s): BACK ISSUES, IRREGULAR HEART BEAT, BOWEL OBSTRUCTION History of Any Multi-Drug Resistant Organisms: None Reported Past Surgical History: Appendectomy, Bowel Resection, Section Additional Past Surgical History / Comment(s): RIGHT FALLOPIAN TUBE REMOVED, PREVIOUS BOWEL OBSTRUCTION Past Anesthesia/Blood Transfusion Reactions: No Reported Reaction Past Psychological History: Anxiety, Depression Smoking Status: Former smoker Past Alcohol Use History: None Reported Past Drug Use History: None Reported - Past Family History Father Family Medical History: Coronary Artery Disease (CAD) Additional Family Medical History / Comment(s): "open heart surgery triple bypass" Mother Family Medical History: Pulmonary Embolus General Exam Limitations: no limitations General appearance: alert Head exam: Present: atraumatic Eye exam: Present: normal appearance ENT exam: Present: mucous membranes moist Respiratory exam: Present: normal lung sounds bilaterally. Absent: respiratory distress, wheezes, rales, rhonchi, stridor Cardiovascular Exam: Present: regular rate, normal rhythm, normal heart sounds, other (Normal radial pulses bilaterally) GI/Abdominal exam: Present: soft, normal bowel sounds, other (Obese abdomen; moderate generalized abdominal tenderness). Absent: guarding, rebound Extremities exam: Absent: pedal edema Back exam: Absent: CVA tenderness (R), CVA tenderness (L) Neurological exam: Present: alert, oriented X3 Psychiatric exam: Present: normal affect Skin exam: Present: warm, dry, normal color Course Vital Signs 03/04/25 15:22 Temperature 97.4 F L Pulse Rate 51 L Respiratory 20 Rate Blood Pressure 125/60 O2 Sat by Pulse 99 Oximetry - Reevaluation(s) Reevaluation #1: 03/04/25 18:14 Case, H&P, test results/CT report and ED management thus far were discussed with Dr. Hall (general surgery). He recommends transferring the patient to a facility with colorectal surgery and surgical oncology services given the patient's CT findings. He has no further recommendations at this time. 03/04/25 18:20 Patient states that her pain has improved with the IV pain medication given in the ED, and she declines any further pain medication at this time. Patient and boyfriend are aware of the patient's test results/CT findings and my discussion with Dr. Hall as above. Patient requests transfer to [facility] if possible for further evaluation/management. 03/04/25 18:29 Case, H&P, test results/CT report, ED management thus far, and my discussion with Dr. Hall as above were discussed with [facility] ED physician Dr. Evans. He accepts ambulance transfer to their ED. He has no further recommendations at this time. Medical Decision Making - Medical Decision Making Was pt. sent in by a medical professional or institution (, PA, INSULATION EXTRUDER OPERATOR, urgent care, hospital, or shelter...) When possible be specific @ -No Did you speak to anyone other than the patient for history (EMS, parent, family, police, friend...)? What history was obtained from this source @ -No Did you review nursing and triage notes (agree or disagree)? Why? @ -I reviewed and agree with nursing and triage notes Were old charts reviewed (outside hosp., previous admission, EMS record, old EKG, old radiological studies, urgent care reports/EKG's, shelter records)? Report findings @ -No old charts were reviewed Differential Diagnosis (chest pain, altered mental status, abdominal pain women, abdominal pain men, vaginal bleeding, weakness, fever, dyspnea, syncope, headache, dizziness, GI bleed, back pain, seizure, CVA, palpatations, mental health, musculoskeletal)? @ -Differential Abdominal Pain Women: Appendicitis, Cholecystitis, diverticulosis, diverticulitis, ischemic bowel, pancreatitis, hepatitis, UTI, gastroenteritis, AAA, incarcerated hernia, bowel obstruction, constipation, inflammatory bowel, peptic ulcer disease, splenic infarction, perforated viscus, kidney stone, this is not meant to be an all- inclusive list EKG interpreted by me (3pts min.). @ -None done X-rays interpreted by me (1pt min.). @ -None done CT interpreted by me (1pt min.). @ -Patient's CT abdomen/pelvis with IV contrast was reviewed myself. It demonstrates findings concerning for intestinal mass with possible perforation versus colonicenteric fistula. I agree with the radiologist's interpretation as above. U/S interpreted by me (1pt. min.). @ -None done What testing was considered but not performed or refused? (CT, X-rays, U/S, labs)? Why? @ -None What meds were considered but not given or refused? Why? @ -None Did you discuss the management of the patient with other professionals (professionals i.e. DrEddi, PA, INSULATION EXTRUDER OPERATOR, lab, RT, psych nurse, social staff worker, websphere commerce consultant, teacher, public information officer, showcase maker)? Give summary @ -As above. Was smoking cessation discussed for >3mins.? @ -No Was critical care preformed (if so, how long)? @ -Yes, 35 minutes. Were there social determinants of health that impacted care today? How? (Homelessness, low income, unemployed, alcoholism, drug addiction, transportation, low edu. Level, literacy, decrease access to med. care, penitentiary, rehab)? @ -No Was there de-escalation of care discussed even if they declined (Discuss DNR or withdrawal of care, Hospice)? DNR status @ -No What co-morbidities impacted this encounter? (DM, HTN, Smoking, COPD, CAD, Cancer, CVA, ARF, Chemo, Hep., AIDS, mental health diagnosis, sleep apnea, morbid obesity)? @ -None Was patient admitted / discharged? Hospital course, mention meds given and route, prescriptions, significant lab abnormalities, going to OR and other pertinent info. @ -Patient has generalized abdominal tenderness, but no rebound or guarding at this time. Patient CT demonstrates findings consistent with malignancy with po ssible perforation versus fistula. Patient has been treated with IV fluids, IV analgesics and IV antibiotics in the ED. Case was discussed with the on-call general surgeon who has recommended transfer to a higher level of care facility with surgical oncology and colorectal surgery services available. Patient has been accepted for ambulance transfer to the [facility] ED by Dr. Evans. Patient agrees with this plan. Undiagnosed new problem with uncertain prognosis? @ -No Drug Therapy requiring intensive monitoring for toxicity (Heparin, Nitro, Insulin, Cardizem)? @ -No Were any procedures done? @ -No Diagnosis/symptom? 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 @ -Default Uncomplicated (without systemic symptoms) or Complicated (systemic symptoms)? @ -Default Side effects of treatment? @ -No Exacerbation, Progression, or Severe Exacerbation? @ -No Poses a threat to life or bodily function? How? (Chest pain, USA, IA, pneumonia, PE, COPD, DKA, ARF, appy, cholecystitis, CVA, Diverticulitis, Homicidal, Suicidal, threat to staff... and all critical care pts) @ -No - Lab Data Result diagrams: 03/04/25 16:23 03/04/25 16:23 Lab Results 03/04/25 03/04/25 03/04/25 Range/Units 16:23 16:23 16:23 WBC 15.9 H (3.8-10.6) k/uL RBC 5.44 H (3.80-5.40) m/uL Hgb 14.9 (11.4-16.0) gm/dL Hct 47.0 H (34.0-46.0) % MCV 86.4 (80.0-100.0) fL MCH 27.3 (25.0-35.0) pg MCHC 31.6 (31.0-37.0) g/dL RDW 14.3 (11.5-15.5) % Plt Count 375 (150-450) k/uL MPV 7.6 Neutrophils % (Manual) 57 % Lymphocytes % (Manual) 22 % Monocytes % (Manual) 4 % Eosinophils % (Manual) 17 % Neutrophils # (Manual) 9.06 H (1.3-7.7) k/uL Lymphocytes # (Manual) 3.50 (1.0-4.8) k/uL Monocytes # (Manual) 0.64 (0-1.0) k/uL Eosinophils # (Manual) 2.70 H (0-0.7) k/uL Nucleated RBCs 0 (0-0) /100 WBC Manual Slide Review Performed RBC Morphology Normal Sodium 139 (137-145) mmol/L Potassium 4.5 (3.5-5.1) mmol/L Chloride 101 (98-107) mmol/L Carbon Dioxide 23 (22-30) mmol/L Anion Gap 15 mmol/L BUN 17 (7-17) mg/dL Creatinine 0.86 (0.52-1.04) mg/dL Est GFR (CKD-EPI)AfAm 87 (>60 ml/min/1.73 sqM) Est GFR (CKD-EPI)NonAf 76 (>60 ml/min/1.73 sqM) Glucose 192 H (74-99) mg/dL Plasma Lactic Acid Juan Miguel 1.4 (0.7-2.0) mmol/L Calcium 9.9 (8.4-10.2) mg/dL Total Bilirubin 1.3 (0.2-1.3) mg/dL AST 37 H (14-36) U/L ALT 19 (4-34) U/L Alkaline Phosphatase 84 (38-126) U/L Total Protein 8.7 H (6.3-8.2) g/dL Albumin 4.8 (3.5-5.0) g/dL Lipase 111 (23-300) U/L - Radiology Data CT abdomen/pelvis with IV contrast: 1. Abnormal masslike thickening of the jejunum in the left hemiabdomen and the adjacent descending colon. 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 Primary malignancy expected in this region, possibly involving the descending colon with reactive adjacent inflammation of the jejunum. Alternatively, primary malignancy could involve the small bowel with adjacent reactive inflammatory changes of the descending colon recommend colonoscopy and/or endoscopy for further evaluation. 2. Numerous hypodense metastatic liver lesions. 3. Indeterminate 6 mm nodule in the partially visualized right middle lobe. Consider CT chest for further evaluation. 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 Specs Out of Hospital Transfer - Requested Specifics: Other Emergency Center ([facility] emergency department)
[2025-03-04] MEDS: HYDROmorphone 0.5 MG/0.5 ML SYRINGE IVP STA (16:33)
[2025-03-04] MEDS: SODIUM CHLORIDE 0.9% 1,000 ML IV ONE (16:35)
[2025-03-04 16:52] LABS: HGB 14.9 gm/dL (11.4-16.0); MCH 27.3 pg (25.0-35.0); MCHC 31.6 g/dL (31.0-37.0); MCV 86.4 fL (80.0-100.0); Mean Platelet Volume 7.6; Platelet Count 375 k/uL (150-450); RBC 5.44 m/uL (3.80-5.40); RDW 14.3 % (11.5-15.5); WBC 15.9 k/uL (3.8-10.6)
[2025-03-04 17:12] LABS: ALT 19 U/L (4-34); AST 37 U/L (14-36); African American GFR (CKD) 87 (>60 ml/min/1.73 sqM); Albumin 4.8 g/dL (3.5-5.0); Alkaline Phosphatase 84 U/L (38-126); Anion Gap 15 mmol/L; Blood Urea Nitrogen 17 mg/dL (7-17); Calcium 9.9 mg/dL (8.4-10.2); Carbon Dioxide 23 mmol/L (22-30); Chloride 101 mmol/L (98-107); Glucose 192 mg/dL (74-99); Lipase 111 U/L (23-300); Non-African American GFR(CKD) 76 (>60 ml/min/1.73 sqM); Potassium 4.5 mmol/L (3.5-5.1); Sodium 139 mmol/L (137-145); Total Bilirubin 1.3 mg/dL (0.2-1.3); Total Protein 8.7 g/dL (6.3-8.2)
[2025-03-04 17:31] LABS: Monocytes # (M) 0.64 k/uL (0-1.0); Neutrophils # (M) 9.06 k/uL (1.3-7.7); Neutrophils % (M) 57 %; Nucleated Red Blood Cells 0 /100 WBC (0-0); RBC Morphology Normal; Total Cells Counted 100
--- NOTE | 2025-03-04 18:02 | CT ---
EXAMINATION TYPE: CT abdomen pelvis w con DATE OF EXAM: 03/04/2025 5:46 PM COMPARISON: CT abdomen/pelvis 09/11/2014. CLINICAL INDICATION: Female, 59 years old with history of abdominal pain; Mid-umbilical abdominal jn n x 4 days TECHNIQUE: Axial CT abdomen pelvis w con;Sagittal and coronal reformats were created on a separate w orkstation. Contrast used:100ml mL of Isovue 300 with IV Contrast, (none if empty) Oral contrast used: without Oral Contrast (none if empty) CT DLP: 1647.3 mGycm, Automated exposure control for dose reduction was used. FINDINGS: LOWER CHEST: Indeterminate 6 mm right middle lobe pulmonary nodule (image [id number] 05). Small ground glass nodule measuring 4 mm. ABDOMEN LIVER: Numerous ill-defined hypodense likely metastatic liver lesions, new from prior studies. Larges t lesion in the right hepatic lobe measures 3.5 x 3.2 cm. GALLBLADDER AND BILE DUCTS: Unremarkable. PANCREAS: Unremarkable. SPLEEN: Unremarkable. ADRENAL GLANDS: Unremarkable. KIDNEYS AND URETERS: No evidence of hydronephrosis or renal calculus. The ureters are unremarkable. PELVIS BLADDER: No evidence for wall thickening or mass given limitations of exam. REPRODUCTIVE: Unremarkable. ABDOMEN & PELVIS STOMACH AND BOWEL: There is abnormal masslike thickening involving a short segment of left hemiabdomi nal jejunum (image [id number] 05). There is small focus of free air between the small and large bowel (imag e 48/105). There is left abdominal mesenteric inflammatory changes and small lymph nodes measuring up to 6 mm in short axis. There is also abnormal wall thickening of the descending colon (image 59/140) . No evidence of small bowel obstruction. PERITONEUM/RETROPERITONEUM: No evidence of large volume pneumoperitoneum. Small focus of free air adj acent to the descending colon as mentioned above. VASCULATURE: No evidence of aortic aneurysm. MUSCULOSKELETAL: No acute osseous abnormalities LYMPH NODES: No gross evidence for lymphadenopathy. SOFT TISSUE/ABDOMINAL WALL: Unremarkable IMPRESSION: 1. Abnormal masslike thickening of the jejunum in the left hemiabdomen and the adjacent descending c olon. There is a small focus of free air in this region suspicious for contained perforation and poss ible colonic-enteric fistula. Primary malignancy expected in this region, possibly involving the desc ending colon with reactive adjacent inflammation of the jejunum. Alternatively, primary malignancy co uld involve the small bowel with adjacent reactive inflammatory changes of the descending colon. José Miguel mmend colonoscopy and/or endoscopy for further evaluation. 2. Numerous hypodense metastatic liver lesions. 3. Indeterminate 6 mm nodule in the partially visualized right middle lobe. Consider CT chest for fu rther evaluation. [facility], , 03/04/2025 5:59 PM
[2025-03-04] MEDS: PIPERACILLIN-TAZOBACTAM 3.375 GM in SODIUM CHLORIDE 0.9% 100 ML IVPB STA (18:36)
[2025-03-04 18:51] VITALS: BP 130/84; PULSE 89; RESP 18; TEMP 97.8
[2025-03-04 20:15] LABS: Appearance,Urine Cloudy (Clear); Bacteria,Urine Rare /hpf; Bilirubin,Urine Negative (Negative); Blood,Urine Negative (Negative); Budding Yeast,Urine Rare /hpf; Color,Urine Yellow; Glucose,Urine (UA) 4+ (Negative); Hyaline Casts,Urine 7 /lpf (0-2); Ketones,Urine Negative (Negative); Leukocyte Esterase,Urine Negative (Negative); Mucus,Urine Few /hpf; Nitrite,Urine Negative (Negative); PH, Urine 5.5 (5.0-8.0); Protein,Urine Trace (Negative); RBC,Urine 2 /hpf (0-5); Squamous Epithelial Cell,Urine 6 /hpf (0-4); Urobilinogen,Urine <2.0 mg/dL (<2.0); WBC,Urine 7 /hpf (0-5)
[2025-03-04 20:16] LABS: Specific Gravity,Urine 1.046 (1.001-1.035)
== END 2025-03-04 18:52 | disposition other institution (70) ==
LOC: EC 15:16
DX: R10.84 Generalized abdominal pain (principal); K63.89 Other specified diseases of intestine; Z87.891 Personal history of nicotine dependence; Z88.3 Allergy status to other anti-infective agents; Z91.040 Latex allergy status
CPT/HCPCS: 36415; 80053; 83605; 83690; 85025; 81001; 87040; 74177; 99285; 96365; 96375; 96361; J2543; J1171; Q9967

== ENCOUNTER → 2025-05-28 | Outpatient (CLI) | payer OTHER ==
[2025-05-28 09:37] LABS: African American GFR (CKD) >90 (>60 ml/min/1.73 sqM); Blood Urea Nitrogen 12 mg/dL (7-17); Non-African American GFR(CKD) >90 (>60 ml/min/1.73 sqM)
--- NOTE | 2025-05-29 20:31 | CT ---
EXAMINATION TYPE: CT ChestAbdPelvis w con DATE OF EXAM: 05/28/2025 COMPARISON: 03/04/2025 HISTORY: malignant neoplasm of decending colon CT DLP: 2148 mGycm. Automated Exposure Control for Dose Reduction was Utilized. CONTRAST: CT scan of the thorax, abdomen and pelvis is performed with IV Contrast, patient injected with 100ml mL of Isovue 300. FINDINGS: LUNGS: The lungs are grossly clear, there is no concerning parenchymal mass. Pulmonary nodule right u pper lobe image 43 8 mm unchanged from prior study. 2 additional nodules identified right lower lobe superior segment measuring 7 and 3 mm respectively. Nodules are suspicious for metastatic disease. Th ere is no pleural effusion or pneumothorax seen. The tracheobronchial tree is patent. MEDIASTINUM: There are no greater than 1 cm hilar or mediastinal lymph nodes. No pericardial effusi on is seen. HEART: Size within normal limits. No significant coronary artery calcifications. OTHER: No additional significant abnormality is seen. LIVER/GB: Again noted are scattered hypoattenuating lesions throughout the liver compatible with meta static disease without significant interval change. PANCREAS: No significant abnormality is seen. SPLEEN: No significant abnormality is seen. ADRENALS: No significant abnormality is seen. KIDNEYS: No significant abnormality is seen. BOWEL: There is luminal colonic narrowing mid descending colon with adjacent soft tissue seen on axia l image 100 of 151 and coronal image 15 of 118. This could reflect residual or recurrent neoplasm. Th ere is proximal fecal stasis noted throughout the colon moderate in degree. Small bowel is of normal caliber. GENITAL ORGANS: No gross abnormality seen. LYMPH NODES: No greater than 1cm abdominal or pelvic lymph nodes are appreciated. OSSEOUS STRUCTURES: No significant abnormality is seen. OTHER: No significant additional abnormality is seen. IMPRESSION: 1.There is luminal colonic narrowing mid descending colon with adjacent soft tissue seen on axial yoselyn ge 100 of 151 and coronal image 15 of 118. This could reflect residual or recurrent neoplasm. There i s proximal fecal stasis noted throughout the colon moderate in degree. 2. Stable metastatic disease to the liver. 3. Pulmonary nodules as discussed [facility], , 05/29/2025 8:29 PM
== END | disposition home or self-care (01) ==
LOC: RADCTMAIN 08:51
PROVIDERS: ATTEND Internal Medicine Hematology & Oncology
DX: C18.6 Malignant neoplasm of descending colon (principal); C78.7 Secondary malignant neoplasm of liver and intrahepatic bile duct; R91.8 Other nonspecific abnormal finding of lung field
CPT/HCPCS: 82565; 84520; 71260; 74177; Q9967

== ENCOUNTER 2025-06-01 11:03 | Inpatient (IN) | payer OTHER ==
--- NOTE | 2025-06-01 11:29 | ED ---
Abdominal Pain HPI - General Chief Complaint: Abdominal Pain Stated Complaint: N/V,Abd pain Time Seen by Provider: 06/01/25 11:10 Source: patient, RN notes reviewed Mode of arrival: ambulatory Limitations: no limitations - History of Present Illness Initial Comments: This is a 59-year-old female who presents to the emergency department for abdominal pain, nausea, and vomiting. Patient was evaluated here on 03/04/[address] Her CT scan was concerning for an abnormal mass and she was transferred to [facility] for further evaluation. She did not end up needing surgery, however she was diagnosed with colon cancer. States that she no longer follows with their facility or any surgeons. She is currently following with [facility] locally. They have her on chemotherapy every other Wednesday. States that she most recently had this on 05/23. States that she has not had a bowel movement in 4 days and has had increasing pain for the last couple of days. Also reports ongoing nausea and vomiting. She is unsure what she is taking for nausea at home, however it has not been helpful. Believes that she is still passing gas. She did try an enema last night and states that she only got a small amount of stool out. Denies any fevers or chills. MD Complaint: abdominal pain - Related Data Home Medications Medication Instructions Recorded Confirmed HYDROcodone/APAP 10-325MG [[place] 1 tab PO QID PRN 02/18/17 06/01/25 10-325] ALPRAZolam [Xanax] 0.5 mg PO BID PRN 06/01/25 06/01/25 OLANZapine [ZyPREXA] 2.5 - 5 mg PO DIRECTED 06/01/25 06/01/25 Ondansetron [Zofran] 4 - 8 mg PO Q4H PRN MDD 32mg 06/01/25 06/01/25 QUEtiapine FUMARATE [SEROquel] 300 mg PO HS 06/01/25 06/01/25 Rivaroxaban [Xarelto] 10 mg PO DAILY 06/01/25 06/01/25 Semaglutide [Ozempic] 0.5 mg SQ SA 06/01/25 06/01/25 carvediloL [Coreg] 12.5 mg PO BID 06/01/25 06/01/25 Allergies Allergy/AdvReac Type Severity Reaction Status Date / Time latex Allergy Swelling Verified 06/01/25 14:26 warfarin sodium Allergy GETS RED Verified 06/01/25 14:26 [From Coumadin] BUMPS ALL OVER Review of Systems ROS Statement: Those systems with pertinent positive or pertinent negative responses have been documented in the HPI. ROS Other: All systems not noted in ROS Statement are negative. Past Medical History Past Medical History: Atrial Fibrillation, Heart Failure, Diabetes Mellitus, Deep Vein Thrombosis (DVT), Hypertension, Pulmonary Embolus (PE) Additional Past Medical History / Comment(s): BACK ISSUES, IRREGULAR HEART BEAT, BOWEL OBSTRUCTION History of Any Multi-Drug Resistant Organisms: None Reported Past Surgical History: Appendectomy, Bowel Resection, Section, Pacemaker Additional Past Surgical History / Comment(s): RIGHT FALLOPIAN TUBE REMOVED, PREVIOUS BOWEL OBSTRUCTION. pacemaker Past Anesthesia/Blood Transfusion Reactions: No Reported Reaction Past Psychological History: Anxiety, Depression Smoking Status: Former smoker Past Alcohol Use History: None Reported Past Drug Use History: None Reported - Past Family History Father Family Medical History: Coronary Artery Disease (CAD) Additional Family Medical History / Comment(s): "open heart surgery triple bypass" Mother Family Medical History: Pulmonary Embolus General Exam Limitations: no limitations General appearance: alert, in no apparent distress Head exam: Present: atraumatic, normocephalic, normal inspection Respiratory exam: Present: normal lung sounds bilaterally. Absent: respiratory distress, wheezes, rales, rhonchi, stridor Cardiovascular Exam: Present: regular rate, normal rhythm GI/Abdominal exam: Present: soft, tenderness (diffuse). Absent: distended Neurological exam: Present: alert, oriented X3, CN II-XII intact Psychiatric exam: Present: normal affect, normal mood Skin exam: Present: warm, dry, intact, normal color. Absent: rash Course Vital Signs 06/01/25 06/01/25 06/01/25 11:04 11:54 13:09 Temperature 97.6 F Pulse Rate 88 66 90 Respiratory 18 16 20 Rate Blood Pressure 120/66 120/60 119/60 O2 Sat by Pulse 96 98 98 Oximetry Medical Decision Making - Medical Decision Making This is a 59 year old female who presents to the emergency department for abdominal pain. Was pt. sent in by a medical professional or institution? @ -No Did you speak to anyone other than the patient for history? @ -No Did you review nursing and triage notes? @ -Yes, and I agree, it is accurate with regards to the patient's symptoms. Were old charts reviewed? @ -CT scan of the chest/abdomen/pelvis from 05/29/2025 demonstrating luminal colonic narrowing in the mid descending colon with adjacent soft tissue suggestive of residual or recurrent neoplasm. There is also proximal fecal stasis throughout the colon. Differential Diagnosis? @ -Differential Abdominal Pain Women: Appendicitis, Cholecystitis, diverticulosis, ischemic bowel, pancreatitis, hepatitis, UTI, gastroenteritis, AAA, incarcerated hernia, bowel obstruction, constipation, inflammatory bowel, hepatitis, peptic ulcer disease, splenic inf arction, perforated viscus, vulvitis, ovarian torsion, PID, kidney stone, placenta abruption, this is not meant to be an all-inclusive list EKG interpreted by me (3pts min.)? @ -EKG interpreted by me demonstrating the following: Electronic ventricular pacemaker. Ventricular rate 89 bpm, VT interval 187 ms, QRS duration 192 ms, QTc 494 ms. X-rays interpreted by me (1pt min.)? @ -Not obtained CT interpreted by me (1pt min.)? @ -CT scan of the abdomen and pelvis obtained. My interpretation identifies a large bowel obstruction. U/S interpreted by me (1pt. min.)? @ -Not obtained What testing was considered but not performed? (CT, X-rays, U/S, labs)? Why? @ -None What meds were considered but not given? Why? @ -None Did you discuss the management of the patient with other professionals? @ -Yes, Dr. Bolivar, who accepts the patient for admission. Did you reconcile home meds? @ -No Was smoking cessation discussed for >3mins.? @ -No Was critical care preformed (if so, how long)? @ -No Were there social determinants of health that impacted care today? How? (Homelessness, low income, unemployed, alcoholism, drug addiction, transportation, low edu. Level, literacy, decrease access to med. care, long term, rehab)? @ -No Was there de-escalation of care discussed even if they declined? (Discuss DNR or withdrawal of care, Hospice)? @ -No What co-morbidities impacted this encounter? (DM, HTN, Smoking, COPD, CAD, Cancer, CVA, Hep., AIDS, mental health diagnosis, sleep apnea, morbid obesity)? @ -Colon cancer Was patient admitted / discharged? @ -Admitted. Lab work demonstrates a mildly elevated lactic acid of 2.3 and is otherwise unremarkable. Urinalysis negative for signs of infection. CT scan of the abdomen and pelvis demonstrates a large bowel obstruction from the stricture from primary colonic adenocarcinoma. Her nausea was well-controlled with Reglan and she was not requiring an NG tube at that point. Patient admitted to medicine for management of large bowel obstruction and general surgery was consulted. Hem/onc also consulted, as patient is currently established with them. Maintenance fluids initiated as well and she was kept NPO. Case discussed with ED attending Dr. Coleman. Undiagnosed new problem with uncertain prognosis? @ -None Drug Therapy requiring intensive monitoring for toxicity (Heparin, Nitro, Insulin, Cardizem)? @ -None Were any procedures done? @ -None Diagnosis/symptom? @ -Large bowel obstruction Acute, or Chronic, or Acute on Chronic? @ -Acute Uncomplicated (without systemic symptoms) or Complicated (systemic symptoms)? @ -Complicated Side effects of treatment? @ -None Exacerbation, Progression, or Severe Exacerbation] @ -Not applicable Poses a threat to life or bodily function? @ -Yes, can lead to bowel perforation. - Lab Data Result diagrams: 06/01/25 11:22 06/01/25 11:22 Lab Results 06/01/25 06/01/25 06/01/25 Range/Units 11:22 11:22 11:22 WBC 8.31 (4.50-10.00) 10*3/uL RBC 5.24 H (4.10-5.20) 10*6/uL Hgb 14.9 (12.0-15.0) g/dL Hct 44.9 (37.2-46.3) % MCV 85.7 (80.0-97.0) fL MCH 28.4 (27.0-32.0) pg MCHC 33.2 (32.0-37.0) g/dL Plt Count 219 (140-440) 10*3/uL MPV 9.2 L (9.5-12.2) fL Immature Gran % (Auto) 0.8 % Neutrophils % 50.3 % Lymphocytes % 34.9 % Monocytes % 11.1 % Eosinophils % 2.3 % Basophils % 0.6 % Immature Gran # 0.07 H (0.00-0.04) 10*3/uL Neutrophils # 4.18 (1.80-7.70) 10*3/uL Lymphocytes # 2.90 (0.90-5.00) 10*3/uL Monocytes # 0.92 (0.20-1.00) 10*3/uL Eosinophils # 0.19 (0.04-0.35) 10*3/uL Basophils # 0.05 (0.00-0.10) 10*3/uL Sodium 142 (137-145) mmol/L Potassium 4.1 (3.5-5.1) mmol/L Chloride 104 (98-107) mmol/L Carbon Dioxide 21 L (22-30) mmol/L Anion Gap 17 mmol/L BUN 14 (7-17) mg/dL Creatinine 0.58 (0.52-1.04) mg/dL Est GFR (CKD-EPI)AfAm >90 (>60 ml/min/1.73 sqM) Est GFR (CKD-EPI)NonAf >90 (>60 ml/min/1.73 sqM) Glucose 176 H (74-99) mg/dL Lactic Ac Sepsis Rflx Plasma Lactic Acid Juan Miguel 2.3 H* (0.7-2.0) mmol/L Calcium 10.0 (8.4-10.2) mg/dL Magnesium 2.1 (1.6-2.3) mg/dL Total Bilirubin 1.4 H (0.2-1.3) mg/dL AST 45 H (14-36) U/L ALT 29 (4-34) U/L Alkaline Phosphatase 104 (38-126) U/L Total Protein 8.8 H (6.3-8.2) g/dL Albumin 5.0 (3.5-5.0) g/dL Amylase 61 (30-110) U/L Lipase 196 (23-300) U/L Urine Color Urine Appearance (Clear) Urine pH (5.0-8.0) Ur Specific [place] (1.001-1.035) Urine Protein (Negative) Urine Glucose (UA) (Negative) Urine Ketones (Negative) Urine Blood (Negative) Urine Nitrite (Negative) Urine Bilirubin (Negative) Urine Urobilinogen (<2.0) mg/dL Ur Leukocyte Esterase (Negative) Urine RBC (0-5) /hpf Urine WBC (0-5) /hpf Ur Squamous Epith Cells (0-4) /hpf Urine Mucus (None) /hpf 06/01/25 06/01/25 Range/Units 11:51 13:06 WBC (4.50-10.00) 10*3/uL RBC (4.10-5.20) 10*6/uL Hgb (12.0-15.0) g/dL Hct (37.2-46.3) % MCV (80.0-97.0) fL MCH (27.0-32.0) pg MCHC (32.0-37.0) g/dL Plt Count (140-440) 10*3/uL MPV (9.5-12.2) fL Immature Gran % (Auto) % Neutrophils % % Lymphocytes % % Monocytes % % Eosinophils % % Basophils % % Immature Gran # (0.00-0.04) 10*3/uL Neutrophils # (1.80-7.70) 10*3/uL Lymphocytes # (0.90-5.00) 10*3/uL Monocytes # (0.20-1.00) 10*3/uL Eosinophils # (0.04-0.35) 10*3/uL Basophils # (0.00-0.10) 10*3/uL Sodium (137-145) mmol/L Potassium (3.5-5.1) mmol/L Chloride (98-107) mmol/L Carbon Dioxide (22-30) mmol/L Anion Gap mmol/L BUN (7-17) mg/dL Creatinine (0.52-1.04) mg/dL Est GFR (CKD-EPI)AfAm (>60 ml/min/1.73 sqM) Est GFR (CKD-EPI)NonAf (>60 ml/min/1.73 sqM) Glucose (74-99) mg/dL Lactic Ac Sepsis Rflx Y Plasma Lactic Acid [place] (0.7-2.0) mmol/L Calcium (8.4-10.2) mg/dL Magnesium (1.6-2.3) mg/dL Total Bilirubin (0.2-1.3) mg/dL AST (14-36) U/L ALT (4-34) U/L Alkaline Phosphatase (38-126) U/L Total Protein (6.3-8.2) g/dL Albumin (3.5-5.0) g/dL Amylase (30-110) U/L Lipase (23-300) U/L Urine Color Yellow Urine Appearance Cloudy H (Clear) Urine pH 5.5 (5.0-8.0) Ur Specific [place] 1.048 H (1.001-1.035) Urine Protein Negative (Negative) Urine Glucose (UA) 4+ H (Negative) Urine Ketones 3+ H (Negative) Urine Blood Negative (Negative) Urine Nitrite Negative (Negative) Urine Bilirubin Negative (Negative) Urine Urobilinogen <2.0 (<2.0) mg/dL Ur Leukocyte Esterase Negative (Negative) Urine RBC 2 (0-5) /hpf Urine WBC 6 H (0-5) /hpf Ur Squamous Epith Cells 3 (0-4) /hpf Urine Mucus Rare H (None) /hpf - Radiology Data Radiology results: report reviewed, image reviewed Disposition Clinical Impression: Large bowel obstruction, Colon cancer Disposition: ADMITTED IP TO THIS HOSP
[2025-06-01 11:34] LABS: Basophils # (A) 0.05 10*3/uL (0.00-0.10); Basophils % (A) 0.6 %; Eosinophils # (A) 0.19 10*3/uL (0.04-0.35); Eosinophils % (A) 2.3 %; HCT 44.9 % (37.2-46.3); HGB 14.9 g/dL (12.0-15.0); Lymphocytes # (A) 2.90 10*3/uL (0.90-5.00); Lymphocytes % (A) 34.9 %; MCH 28.4 pg (27.0-32.0); MCHC 33.2 g/dL (32.0-37.0); MCV 85.7 fL (80.0-97.0); Monocytes # (A) 0.92 10*3/uL (0.20-1.00); Monocytes % (A) 11.1 %; Neutrophils # (A) 4.18 10*3/uL (1.80-7.70); Neutrophils % (A) 50.3 %; Platelet Count 219 10*3/uL (140-440); RBC 5.24 10*6/uL (4.10-5.20); RDW 19.6 % (11.5-14.5); WBC 8.31 10*3/uL (4.50-10.00)
[2025-06-01] MEDS: PANTOPRAZOLE 40 MG/10 ML VIAL IVP STA (11:39)
[2025-06-01] MEDS: SODIUM CHLORIDE 0.9% 1,000 ML IV ONE (11:40)
[2025-06-01] MEDS: MORPHINE SULFATE 4 MG/ML SYRINGE IVP STA (11:40)
[2025-06-01] MEDS: METOCLOPRAMIDE 5 MG/ML 2 ML VIAL IVP STA (11:40)
[2025-06-01 11:48] LABS: ALT 29 U/L (4-34); AST 45 U/L (14-36); African American GFR (CKD) >90 (>60 ml/min/1.73 sqM); Albumin 5.0 g/dL (3.5-5.0); Alkaline Phosphatase 104 U/L (38-126); Amylase 61 U/L (30-110); Anion Gap 17 mmol/L; Blood Urea Nitrogen 14 mg/dL (7-17); Calcium 10.0 mg/dL (8.4-10.2); Carbon Dioxide 21 mmol/L (22-30); Chloride 104 mmol/L (98-107); Glucose 176 mg/dL (74-99); Lipase 196 U/L (23-300); Magnesium 2.1 mg/dL (1.6-2.3); Non-African American GFR(CKD) >90 (>60 ml/min/1.73 sqM); Potassium 4.1 mmol/L (3.5-5.1); Sodium 142 mmol/L (137-145); Total Protein 8.8 g/dL (6.3-8.2)
[2025-06-01 13:13] LABS: Bilirubin,Urine Negative (Negative); Blood,Urine Negative (Negative); Color,Urine Yellow; Glucose,Urine (UA) 4+ (Negative); Leukocyte Esterase,Urine Negative (Negative); Mucus,Urine Rare /hpf; Nitrite,Urine Negative (Negative); PH, Urine 5.5 (5.0-8.0); Protein,Urine Negative (Negative); RBC,Urine 2 /hpf (0-5); Squamous Epithelial Cell,Urine 3 /hpf (0-4); Urobilinogen,Urine <2.0 mg/dL (<2.0); WBC,Urine 6 /hpf (0-5)
[2025-06-01 13:14] LABS: Specific Gravity,Urine 1.048 (1.001-1.035)
--- NOTE | 2025-06-01 13:14 | CT ---
EXAMINATION TYPE: CT abdomen pelvis wo con DATE OF EXAM: 06/01/2025 12:38 PM COMPARISON: Pet/CT. CT 05/28/2025. CLINICAL INDICATION: Female, 59 years old with history of Abdominal pain, N/V; Abdominal pain, N/V. P T STATES SYMPTOMS STARTED ON 05.28.25 AFTER HE OUT PATIENT CT. TECHNIQUE: Axial CT abdomen pelvis wo con;Sagittal and coronal reformats were created on a separate workstation. Contrast used: mL of , (none if empty) Oral contrast used: without Oral Contrast (none if empty) CT DLP: 784.1 mGycm, Automated exposure control for dose reduction was used. FINDINGS: LOWER CHEST: Partially visualized a millimeter pulmonary nodule in the right middle lobe. ABDOMEN LIVER: Scattered metastatic lesions in liver no significant change from prior PET. GALLBLADDER AND BILE DUCTS: Unremarkable. PANCREAS: Unremarkable. SPLEEN: Unremarkable. ADRENAL GLANDS: Unremarkable. KIDNEYS AND URETERS: No evidence of hydronephrosis or obstructing renal calculus. The ureters are unr emarkable. PELVIS BLADDER: No evidence for wall thickening or mass given limitations of exam. REPRODUCTIVE: Unremarkable. ABDOMEN & PELVIS STOMACH AND BOWEL: Large bowel obstruction from stricture of the descending colon series 201 image 81 with mass extending outward away from the colon towards midline. There is a pathologic lymph nodes m easuring up to 9 mm in the mesentery. Post surgical changes involving the upper abdomen. PERITONEUM/RETROPERITONEUM: No evidence of pneumoperitoneum or free fluid. VASCULATURE: No evidence of aortic aneurysm. MUSCULOSKELETAL: No acute osseous abnormalities. Mild disc degeneration changes are present throughou t the thoracolumbar spine. LYMPH NODES: No gross evidence for lymphadenopathy. SOFT TISSUE/ABDOMINAL WALL: Fat-containing ventral wall hernia. IMPRESSION: Large bowel obstruction from stricture from primary colonic adenocarcinoma with metastatic disease wi thin the liver, the mesentery and likely pulmonary nodules described impression visualized. [facility], , 06/01/2025 1:11 PM
[2025-06-01 13:15] LABS: Ketones,Urine 3+ (Negative)
[2025-06-01] MEDS ORDERED: NALOXONE 0.4 MG/ML 1 ML VIAL IV PRN (13:24)
[2025-06-01] MEDS ORDERED: HYDROmorphone 0.5 MG/0.5 ML SYRINGE IVP PRN (13:24)
[2025-06-01] MEDS ORDERED: METOCLOPRAMIDE 5 MG/ML 2 ML VIAL IVP PRN (13:27)
[2025-06-01] MEDS: SODIUM CHLORIDE 0.9% 1,000 ML IV STA (13:33)
[2025-06-01] MEDS: HYDROmorphone 1 MG/ML 1 ML SYRINGE IVP STA (13:34)
--- NOTE | 2025-06-01 15:00 | P.GSCN ---
History of Present Illness Consult date: 06/01/25 History of present illness: 59-year-old female presents to the emergency department with complaint of abdominal pain. She states that the pain has been present over the past few days and she has been unable to have a bowel movement. She states that she has had some episodes of flatus, however minimal. She is noted to have a history of a descending colon adenocarcinoma for which she is currently receiving chemotherapy with oncology service. She states that she began having issues with bowel function and did obtain a CT of the abdomen pelvis earlier this week and has tried multiple bowel regimen with liquid laxative, pill form laxative and enema. She has not had any success in bowel function. CT of the abdomen and pelvis was performed at this emergency department visit with contrast noted within the large bowel from her previous CT 3 days ago as she did not receive oral contrast today. Contrast has not moved past the obstructive lesion. Patient states that she did have previous evaluation at [facility] where surgery was initially planned, however she resumed having bowel function and was cleared from surgery at that time. She is on anticoagulation and does follow with cardiology. She states that while she was at [facility] she did require cardiac procedure prior to any surgical intervention. She describes this as a pacemaker, however no palpable pacemaker on her left chest is noted. Review of Systems All systems: negative Past Medical History Past Medical History: Atrial Fibrillation, Heart Failure, Diabetes Mellitus, Deep Vein Thrombosis (DVT), Hypertension, Pulmonary Embolus (PE) Additional Past Medical History / Comment(s): BACK ISSUES, IRREGULAR HEART BEAT, BOWEL OBSTRUCTION History of Any Multi-Drug Resistant Organisms: None Reported Past Surgical History: Appendectomy, Bowel Resection, Section, Pacemaker Additional Past Surgical History / Comment(s): RIGHT FALLOPIAN TUBE REMOVED, PREVIOUS BOWEL OBSTRUCTION. pacemaker Past Anesthesia/Blood Transfusion Reactions: No Reported Reaction Past Psychological History: Anxiety, Depression Smoking Status: Former smoker Past Alcohol Use History: None Reported Past Drug Use History: None Reported - Past Family History Father Family Medical History: Coronary Artery Disease (CAD) Additional Family Medical History / Comment(s): "open heart surgery triple bypass" Mother Family Medical History: Pulmonary Embolus Medications and Allergies Home Medications Medication Instructions Recorded Confirmed Type HYDROcodone/APAP 10-325MG [[place] 1 tab PO QID PRN 02/18/17 06/01/25 History 10-325] ALPRAZolam [Xanax] 0.5 mg PO BID PRN 06/01/25 06/01/25 History OLANZapine [ZyPREXA] 2.5 - 5 mg PO DIRECTED 06/01/25 06/01/25 History Ondansetron [Zofran] 4 - 8 mg PO Q4H PRN MDD 32mg 06/01/25 06/01/25 History QUEtiapine FUMARATE [SEROquel] 300 mg PO HS 06/01/25 06/01/25 History Rivaroxaban [Xarelto] 10 mg PO DAILY 06/01/25 06/01/25 History Semaglutide [Ozempic] 0.5 mg SQ SA 06/01/25 06/01/25 History carvediloL [Coreg] 12.5 mg PO BID 06/01/25 06/01/25 History Allergies Allergy/AdvReac Type Severity Reaction Status Date / Time latex Allergy Swelling Verified 06/01/25 14:26 warfarin sodium Allergy GETS RED Verified 06/01/25 14:26 [From Coumadin] BUMPS ALL OVER Surgical - Exam Osteopathic Statement: *. No significant issues noted on an osteopathic structural exam other than those noted in the History and Physical/Consult. Vital Signs Temp Pulse Resp BP Pulse Ox 97.6 F 88 18 120/66 96 06/01/25 11:04 06/01/25 11:04 06/01/25 11:04 06/01/25 11:04 06/01/25 11:04 - General well nourished, no distress - Eyes normal ocular movement - Neck trachea midline - Respiratory normal respiratory effort - Abdomen Soft, distended, no rebound or guarding - Psychiatric oriented to time, oriented to person, oriented to place Results - Labs 06/01/25 11:22 06/01/25 11:22 Abnormal Lab Results - Last 24 Hours (Table) 06/01/25 06/01/25 06/01/25 Range/Units 11:22 11:22 11:22 RBC 5.24 H (4.10-5.20) 10*6/uL MPV 9.2 L (9.5-12.2) fL Immature Gran # 0.07 H (0.00-0.04) 10*3/uL Carbon Dioxide 21 L (22-30) mmol/L Glucose 176 H (74-99) mg/dL Plasma Lactic Acid [place] 2.3 H* (0.7-2.0) mmol/L Total Bilirubin 1.4 H (0.2-1.3) mg/dL AST 45 H (14-36) U/L Total Protein 8.8 H (6.3-8.2) g/dL Urine Appearance (Clear) Ur Specific [place] (1.001-1.035) Urine Glucose (UA) (Negative) Urine Ketones (Negative) Urine WBC (0-5) /hpf Urine Mucus (None) /hpf 06/01/25 Range/Units 13:06 RBC (4.10-5.20) 10*6/uL MPV (9.5-12.2) fL Immature Gran # (0.00-0.04) 10*3/uL Carbon Dioxide (22-30) mmol/L Glucose (74-99) mg/dL Plasma Lactic Acid [place] (0.7-2.0) mmol/L Total Bilirubin (0.2-1.3) mg/dL AST (14-36) U/L Total Protein (6.3-8.2) g/dL Urine Appearance Cloudy H (Clear) Ur Specific [place] 1.048 H (1.001-1.035) Urine Glucose (UA) 4+ H (Negative) Urine Ketones 3+ H (Negative) Urine WBC 6 H (0-5) /hpf Urine Mucus Rare H (None) /hpf Diabetes panel 06/01/25 Range/Units 11:22 Sodium 142 (137-145) mmol/L Potassium 4.1 (3.5-5.1) mmol/L Chloride 104 (98-107) mmol/L Carbon Dioxide 21 L (22-30) mmol/L BUN 14 (7-17) mg/dL Creatinine 0.58 (0.52-1.04) mg/dL Glucose 176 H (74-99) mg/dL Calcium 10.0 (8.4-10.2) mg/dL AST 45 H (14-36) U/L ALT 29 (4-34) U/L Alkaline Phosphatase 104 (38-126) U/L Total Protein 8.8 H (6.3-8.2) g/dL Albumin 5.0 (3.5-5.0) g/dL Calcium panel 06/01/25 Range/Units 11:22 Calcium 10.0 (8.4-10.2) mg/dL Albumin 5.0 (3.5-5.0) g/dL Pituitary panel 06/01/25 Range/Units 11:22 Sodium 142 (137-145) mmol/L Potassium 4.1 (3.5-5.1) mmol/L Chloride 104 (98-107) mmol/L Carbon Dioxide 21 L (22-30) mmol/L BUN 14 (7-17) mg/dL Creatinine 0.58 (0.52-1.04) mg/dL Glucose 176 H (74-99) mg/dL Calcium 10.0 (8.4-10.2) mg/dL Adrenal panel 06/01/25 Range/Units 11:22 Sodium 142 (137-145) mmol/L Potassium 4.1 (3.5-5.1) mmol/L Chloride 104 (98-107) mmol/L Carbon Dioxide 21 L (22-30) mmol/L BUN 14 (7-17) mg/dL Creatinine 0.58 (0.52-1.04) mg/dL Glucose 176 H (74-99) mg/dL Calcium 10.0 (8.4-10.2) mg/dL Total Bilirubin 1.4 H (0.2-1.3) mg/dL AST 45 H (14-36) U/L ALT 29 (4-34) U/L Alkaline Phosphatase 104 (38-126) U/L Total Protein 8.8 H (6.3-8.2) g/dL Albumin 5.0 (3.5-5.0) g/dL Assessment and Plan Plan: 59-year-old female with large bowel obstruction secondary to descending colon mass. She is currently receiving chemotherapy and has had 4 doses per patient and patient's boyfriend at bedside. Her next dose is due next week. I discussed the case in depth with the patient at bedside with recommendation of diverting ostomy secondary to obstructive process. Based on her previous cardiac history with concerns of cardiac event during procedures, we will obtain cardiac risk stratification prior to surgical intervention. Timing of procedure based on cardiology recommendations. Hold anticoagulation. Keep NPO.
--- NOTE | 2025-06-01 15:26 | P.HPIM ---
History of Present Illness H&P Date: 06/01/25 History of present illness; patient is a 59-year-old lady with past medical history significant for colon cancer on chemotherapy who presents the ER because of abdominal pain. Patient stated she was all right when on Wednesday she had a CT abdominal pelvis done with contrast, following that she started having nausea with vomiting. There was also complain of abdominal pain, abdominal pain was located in the lower quadrants, was intermittent, nonradiating, no aggravating or relieving factor associated with abdominal pain. Patient also noticed that she was not able to have a bowel movement. Patient was able to pass gas but no BM. Patient tried to use laxatives and lactulose with no relief. Patient did see her tour operator oncologist yesterday and was prescribed additional medication with no relief. Because of these abdominal symptoms, patient came to the ER Initial lab work done in the ER showed WBC 8.31, hemoglobin 14.9, platelet count 219, sodium 142, potassium 4.1, BUN 14, creatinine 0.58, lactate 2.3 bilirubin 1.4, AST 45, ALT 29, total protein 8.8 UA negative for infection CT abdominal pelvis done showed large bowel obstruction from stricture from primary chronic adenocarcinoma with metastatic disease within the liver, mesentery, pulm nodules Patient admitted to internal medicine service REVIEW OF SYSTEMS: CONSTITUTIONAL: No fever, no malaise, no fatigue. HEENT: No recent visual problems or hearing problems. Denied any sore throat. CARDIOVASCULAR: No chest pain, orthopnea, PND, no palpitations, no syncope. PULMONARY: No shortness of breath, no cough, no hemoptysis. GASTROINTESTINAL: Mentioned above NEUROLOGICAL: No headaches, no weakness, no numbness. HEMATOLOGICAL: Denies any bleeding or petechiae. GENITOURINARY: Denies any burning micturition, frequency, or urgency. MUSCULOSKELETAL/RHEUMATOLOGICAL: Denies any joint pain, swelling, or any muscle pain. ENDOCRINE: Denies any polyuria or polydipsia. The rest of the 14-point review of systems is negative. PHYSICAL EXAMINATION: GENERAL: The patient is alert and oriented x3, not in any acute distress. Well developed, well nourished. HEENT: Pupils are round and equally reacting to light. EOMI. No scleral icterus. No conjunctival pallor. Normocephalic, atraumatic. No pharyngeal erythema. No thyromegaly. CARDIOVASCULAR: S1 and S2 present. No murmurs, rubs, or gallops. PULMONARY: Chest is clear to auscultation, no wheezing or crackles. ABDOMEN: Distended, bowel sounds not audible. No palpable organomegaly. MUSCULOSKELETAL: No joint swelling or deformity. EXTREMITIES: No cyanosis, clubbing, or pedal edema. NEUROLOGICAL: Gross neurological examination did not reveal any focal deficits. SKIN: No rashes. Assessment and plan Alcohol obstruction Metastatic colon adenocarcinoma Lactic acidosis History of atrial fibrillation History of diabetes mellitus Monitor vital signs Monitor CBC Monitor CMP Keep patient n.p.o. Ordered antiemetics Order IV fluids Ordered pain management Hold Xarelto Ordered blood sugar monitoring, ordered sliding scale insulin Consult cardiology for perioperative risk stratification Surgery consulted Labs and medication were reviewed.. Continue same treatment. Continue with symptomatic treatment. Resume home medication. Monitor labs and vitals. DVT and GI prophylaxis. Further recommendations as per clinical course of the patient Dictation was produced using [employer] dictation software. please excuse any grammatical, word or spelling errors. Past Medical History Past Medical History: Atrial Fibrillation, Heart Failure, Diabetes Mellitus, Deep Vein Thrombosis (DVT), Hypertension, Pulmonary Embolus (PE) Additional Past Medical History / Comment(s): BACK ISSUES, IRREGULAR HEART BEAT, BOWEL OBSTRUCTION History of Any Multi-Drug Resistant Organisms: None Reported Past Surgical History: Appendectomy, Bowel Resection, Section, Pacemaker Additional Past Surgical History / Comment(s): RIGHT FALLOPIAN TUBE REMOVED, PREVIOUS BOWEL OBSTRUCTION. pacemaker Past Anesthesia/Blood Transfusion Reactions: No Reported Reaction Past Psychological History: Anxiety, Depression Smoking Status: Former smoker Past Alcohol Use History: None Reported Past Drug Use History: None Reported - Past Family History Father Family Medical History: Coronary Artery Disease (CAD) Additional Family Medical History / Comment(s): "open heart surgery triple bypass" Mother Family Medical History: Pulmonary Embolus Medications and Allergies Home Medications Medication Instructions Recorded Confirmed Type HYDROcodone/APAP 10-325MG [[place] 1 tab PO QID PRN 02/18/17 06/01/25 History 10-325] ALPRAZolam [Xanax] 0.5 mg PO BID PRN 06/01/25 06/01/25 History OLANZapine [ZyPREXA] 2.5 - 5 mg PO DIRECTED 06/01/25 06/01/25 History Ondansetron [Zofran] 4 - 8 mg PO Q4H PRN MDD 32mg 06/01/25 06/01/25 History QUEtiapine FUMARATE [SEROquel] 300 mg PO HS 06/01/25 06/01/25 History Rivaroxaban [Xarelto] 10 mg PO DAILY 06/01/25 06/01/25 History Semaglutide [Ozempic] 0.5 mg SQ SA 06/01/25 06/01/25 History carvediloL [Coreg] 12.5 mg PO BID 06/01/25 06/01/25 History Allergies Allergy/AdvReac Type Severity Reaction Status Date / Time latex Allergy Swelling Verified 06/01/25 14:26 warfarin sodium Allergy GETS RED Verified 06/01/25 14:26 [From Coumadin] BUMPS ALL OVER Physical Exam Vitals: Vital Signs Temp Pulse Resp BP Pulse Ox 06/01/25 13:09 90 20 119/60 98 06/01/25 11:54 66 16 120/60 98 06/01/25 11:04 97.6 F 88 18 120/66 96 Intake and Output 06/01/25 06/01/25 06/01/25 06:59 14:59 22:59 Other: Weight 91.626 kg Results CBC & Chem 7: 06/01/25 11:22 06/01/25 11:22 Labs: Abnormal Lab Results - Last 24 Hours (Table) 06/01/25 06/01/25 06/01/25 Range/Units 11:22 11:22 11:22 RBC 5.24 H (4.10-5.20) 10*6/uL MPV 9.2 L (9.5-12.2) fL Immature Gran # 0.07 H (0.00-0.04) 10*3/uL Carbon Dioxide 21 L (22-30) mmol/L Glucose 176 H (74-99) mg/dL Plasma Lactic Acid Juan Miguel 2.3 H* (0.7-2.0) mmol/L Total Bilirubin 1.4 H (0.2-1.3) mg/dL AST 45 H (14-36) U/L Total Protein 8.8 H (6.3-8.2) g/dL Urine Appearance (Clear) Ur Specific [place] (1.001-1.035) Urine Glucose (UA) (Negative) Urine Ketones (Negative) Urine WBC (0-5) /hpf Urine Mucus (None) /hpf 06/01/25 Range/Units 13:06 RBC (4.10-5.20) 10*6/uL MPV (9.5-12.2) fL Immature Gran # (0.00-0.04) 10*3/uL Carbon Dioxide (22-30) mmol/L Glucose (74-99) mg/dL Plasma Lactic Acid Juan Miguel (0.7-2.0) mmol/L Total Bilirubin (0.2-1.3) mg/dL AST (14-36) U/L Total Protein (6.3-8.2) g/dL Urine Appearance Cloudy H (Clear) Ur Specific [place] 1.048 H (1.001-1.035) Urine Glucose (UA) 4+ H (Negative) Urine Ketones 3+ H (Negative) Urine WBC 6 H (0-5) /hpf Urine Mucus Rare H (None) /hpf
[2025-06-01] MEDS: HYDROmorphone 1 MG/ML 1 ML SYRINGE IVP PRN (17:05)
[2025-06-01] MEDS: ONDANSETRON 4 MG/2 ML VIAL IVP PRN (18:51)
[2025-06-01 20:16] LABS: Glucose,Whole Blood 132 mg/dL (70-110)
[2025-06-01] MEDS: ALPRAZolam 0.5 MG TAB PO PRN (21:08)
[2025-06-02 01:05] LABS: Glucose,Whole Blood 105 mg/dL (70-110)
[2025-06-02 05:53] LABS: Glucose,Whole Blood 99 mg/dL (70-110)
[2025-06-02] MEDS: PANTOPRAZOLE 40 MG/10 ML VIAL IV SCH (08:15)
--- NOTE | 2025-06-02 12:02 | P.PN ---
Subjective Progress Note Date: 06/02/25 Patient seen and examined at bedside. Overall, appears comfortable. Denies any bowel movement or flatus today. Denies any vomiting. Objective - Vital Signs Vital signs: Vital Signs Temp 97.6 F 06/02/25 07:37 Pulse 82 06/02/25 08:00 Resp 17 06/02/25 08:00 BP 113/60 06/02/25 07:37 Pulse Ox 93 L 06/02/25 07:37 FiO2 Intake & Output 06/01/25 06/02/25 06/02/25 18:59 06:59 18:59 Weight 91.626 kg 91.626 kg Other: Voiding Method Toilet Toilet # Voids 1 - Constitutional General appearance: Present: cooperative - Gastrointestinal Gastrointestinal Comment(s): Soft, nontender, distended - Labs CBC & Chem 7: 06/01/25 11:22 06/01/25 11:22 Labs: Abnormal Lab Results - Last 24 Hours (Table) 06/01/25 06/01/25 Range/Units 13:06 20:14 POC Glucose (mg/dL) 132 H (70-110) mg/dL Urine Appearance Cloudy H (Clear) Ur Specific [place] 1.048 H (1.001-1.035) Urine Glucose (UA) 4+ H (Negative) Urine Ketones 3+ H (Negative) Urine WBC 6 H (0-5) /hpf Urine Mucus Rare H (None) /hpf Assessment and Plan Plan: 59-year-old female with large bowel obstruction. Plan for diverting colostomy. Case was discussed with cardiology who will evaluate patient today. Patient last took anticoagulation on the evening of 05/31/2025. Plan for surgical i ntervention with diverting colostomy tomorrow morning based on cardiology clearance and holding anticoagulation. Patient agreeable with this plan.
[2025-06-02 12:06] LABS: Glucose,Whole Blood 102 mg/dL (70-110)
[2025-06-02 13:17] LABS: Basophils # (A) 0.04 10*3/uL (0.00-0.10); Basophils % (A) 0.7 %; Eosinophils # (A) 0.02 10*3/uL (0.04-0.35); Eosinophils % (A) 0.4 %; HCT 38.6 % (37.2-46.3); HGB 12.4 g/dL (12.0-15.0); Immature Platelet Fraction 1.4 % (1.1-6.1); Lymphocytes # (A) 1.82 10*3/uL (0.90-5.00); Lymphocytes % (A) 33.8 %; MCH 28.4 pg (27.0-32.0); MCHC 32.1 g/dL (32.0-37.0); MCV 88.5 fL (80.0-97.0); Monocytes # (A) 0.95 10*3/uL (0.20-1.00); Monocytes % (A) 17.7 %; Neutrophils # (A) 2.52 10*3/uL (1.80-7.70); Neutrophils % (A) 46.8 %; Platelet Count 162 10*3/uL (140-440); RBC 4.36 10*6/uL (4.10-5.20); RDW 19.5 % (11.5-14.5); WBC 5.38 10*3/uL (4.50-10.00)
[2025-06-02 13:25] LABS: African American GFR (CKD) >90 (>60 ml/min/1.73 sqM); Anion Gap 15 mmol/L; Blood Urea Nitrogen 15 mg/dL (7-17); Calcium 9.1 mg/dL (8.4-10.2); Carbon Dioxide 19 mmol/L (22-30); Chloride 106 mmol/L (98-107); Glucose 108 mg/dL (74-99); Non-African American GFR(CKD) >90 (>60 ml/min/1.73 sqM); Sodium 140 mmol/L (137-145)
[2025-06-02 13:29] LABS: Potassium 4.2 mmol/L (3.5-5.1)
--- NOTE | 2025-06-02 15:02 | P.CRDCN ---
History of Present Illness Consult date: 06/02/25 Consult reason: pre-op evaluation Chief complaint: Abdominal pain History of present illness: History of present illness: Patient is a pleasant 59-year-old female with significant past medical history of bradycardia status post Micra pacemaker implantation, hypertension, colon cancer, anxiety, diabetes type 2, atrial fibrillation who presented with complaints of abdominal pain. Cardiology has been consulted for preoperative evaluation given large bowel obstruction. She denies any chest pain or pressure no shortness of breath, palpitations, heart racing episodes. No swelling. She is currently uncertain of her Xarelto dose. She did have prior left heart catheterization in 2017 that showed normal coronary arteries. EKG shows paced rhythm with no significant ST or T wave changes. REVIEW OF SYSTEMS: No fever or chills. No cough or expectoration. No diaphoresis. Patient denies headache, dizziness, blurred vision, double vision. Patient denies any stomach discomfort. No nausea, vomiting. No hematochezia. No hematemesis. Denies any black stools or blood in his stools. Denies dysuria or hematuria. No muscle weakness or numbness. No chest pain or pressure. PHYSICAL EXAMINATION: This is a -59year-old female in no apparent distress at the time of my examination. HEENT: Head is atraumatic, normocephalic. Pupils are equal, round. Sclerae anicteric. Conjunctivae are clear. Mucous membranes of the mouth are moist. Neck is supple. There is no jugular venous distention. No carotid bruit is heard. CHEST EXAMINATION: Lungs are clear to auscultation. No chest wall tenderness is noted on palpation or with deep breathing. HEART EXAMINATION: Heart regular rate and rhythm. S1, S2 heard. No murmurs, gallops or rub. ABDOMEN: Distended EXTREMITIES: 2+ peripheral pulses with no evidence of peripheral edema and no calf tenderness noted. NEUROLOGIC EXAMINATION: Patient is awake, alert and oriented x3. IMPRESSION AND PLAN: Bradycardia status post Micra pacemaker Hypertension Colon cancer Anxiety Diabetes type 2 Atrial fibrillation Large bowel obstruction Preoperative evaluation PLAN: She is cleared for surgery from a cardiac standpoint. Okay to hold anticoagulation and resume once cleared by surgery post procedure. I am dictating on behalf of Dr. Luis A Sheffield's history/physical and ass essment/plan. Past Medical History Past Medical History: Atrial Fibrillation, Heart Failure, Diabetes Mellitus, Deep Vein Thrombosis (DVT), Hypertension, Pulmonary Embolus (PE) Additional Past Medical History / Comment(s): BACK ISSUES, IRREGULAR HEART BEAT, BOWEL OBSTRUCTION History of Any Multi-Drug Resistant Organisms: None Reported Past Surgical History: Appendectomy, Bowel Resection, Section, Pacemaker Additional Past Surgical History / Comment(s): RIGHT FALLOPIAN TUBE REMOVED, PREVIOUS BOWEL OBSTRUCTION. pacemaker Past Anesthesia/Blood Transfusion Reactions: No Reported Reaction Type of Cardiac Device: Permanent Pacemaker Device Placement Date:: February of 2025 Past Psychological History: Anxiety, Depression Smoking Status: Former smoker Past Alcohol Use History: None Reported Past Drug Use History: None Reported - Past Family History Father Family Medical History: Coronary Artery Disease (CAD) Additional Family Medical History / Comment(s): "open heart surgery triple bypass" Mother Family Medical History: Pulmonary Embolus Medications and Allergies Home Medications Medication Instructions Recorded Confirmed Type HYDROcodone/APAP 10-325MG [[place] 1 tab PO QID PRN 02/18/17 06/01/25 History 10-325] ALPRAZolam [Xanax] 0.5 mg PO BID PRN 06/01/25 06/01/25 History OLANZapine [ZyPREXA] 2.5 - 5 mg PO DIRECTED 06/01/25 06/01/25 History Ondansetron [Zofran] 4 - 8 mg PO Q4H PRN MDD 32mg 06/01/25 06/01/25 History QUEtiapine FUMARATE [SEROquel] 300 mg PO HS 06/01/25 06/01/25 History Rivaroxaban [Xarelto] 10 mg PO DAILY 06/01/25 06/01/25 History Semaglutide [Ozempic] 0.5 mg SQ SA 06/01/25 06/01/25 History carvediloL [Coreg] 12.5 mg PO BID 06/01/25 06/01/25 History Allergies Allergy/AdvReac Type Severity Reaction Status Date / Time latex Allergy Swelling Verified 06/01/25 14:26 warfarin sodium Allergy GETS RED Verified 06/01/25 14:26 [From Coumadin] BUMPS ALL OVER Physical Exam Vitals: Vital Signs Temp Pulse Pulse Resp BP BP Pulse Ox 06/02/25 12:07 97.8 F 86 18 101/54 94 L 06/02/25 08:00 82 17 06/02/25 07:37 97.6 F 82 17 113/60 93 L 06/02/25 01:03 98.3 F 85 16 110/68 92 L 06/01/25 19:09 97.3 F L 84 17 118/73 94 L 06/01/25 18:44 65 16 130/68 98 06/01/25 17:00 89 20 120/74 98 06/01/25 16:00 87 20 120/70 98 06/01/25 15:00 80 20 110/70 98 Intake and Output 06/01/25 06/02/25 06/02/25 22:59 06:59 14:59 Other: Voiding Method Toilet Toilet # Voids 1 Weight 91.626 kg Results 06/02/25 12:54 06/02/25 12:54 CBC 06/02/25 Range/Units 12:54 WBC 5.38 (4.50-10.00) 10*3/uL RBC 4.36 (4.10-5.20) 10*6/uL Hgb 12.4 (12.0-15.0) g/dL Hct 38.6 (37.2-46.3) % Plt Count 162 (140-440) 10*3/uL Comprehensive Metabolic Panel 06/02/25 Range/Units 12:54 Sodium 140 (137-145) mmol/L Potassium 4.2 (3.5-5.1) mmol/L Chloride 106 (98-107) mmol/L Carbon Dioxide 19 L (22-30) mmol/L BUN 15 (7-17) mg/dL Creatinine 0.44 L (0.52-1.04) mg/dL Glucose 108 H (74-99) mg/dL Calcium 9.1 (8.4-10.2) mg/dL Current Medications Generic Name Dose Route Start Last Admin Trade Name Freq PRN Reason Stop Dose Admin Acetaminophen 650 mg 06/01/25 13:24 Acetaminophen Tab 325 Mg Tab PO Q6HR PRN Mild Pain or Fever > 100.5 Alprazolam 0.5 mg 06/01/25 15:16 06/02/25 08:16 Alprazolam 0.5 Mg Tab PO 0.5 mg BID PRN Administration Anxiety Carvedilol 12.5 mg 06/01/25 21:00 06/02/25 08:15 Carvedilol 12.5 Mg Tab PO 12.5 mg BID-W/MEALS MITZY Administration Hydromorphone HCl 0.5 mg 06/01/25 13:24 Hydromorphone 0.5 Mg/0.5 Ml Syringe IVP Q3HR PRN Moderate Pain (Scale 4 to 6) Hydromorphone HCl 1 mg 06/01/25 13:24 06/02/25 12:25 Hydromorphone 1 Mg/Ml 1 Ml Syringe IVP 1 mg Q3HR PRN Administration Severe Pain (Scale 7 to 10) Metoclopramide HCl 10 mg 06/01/25 13:27 Metoclopramide 5 Mg/Ml 2 Ml Vial IVP Q6H PRN Nausea And Vomiting Naloxone HCl 0.2 mg 06/01/25 13:24 Naloxone 0.4 Mg/Ml 1 Ml Vial IV Q2M PRN Opioid Reversal Ondansetron HCl 4 mg 06/01/25 13:24 06/02/25 12:53 Ondansetron 4 Mg/2 Ml Vial IVP 4 mg Q8HR PRN Administration Nausea And Vomiting Pantoprazole Sodium 40 mg 06/02/25 09:00 06/02/25 08:15 Pantoprazole 40 Mg/10 Ml Vial IV 40 mg DAILY MITZY Administration Intake and Output 06/01/25 06/02/25 06/02/25 22:59 06:59 14:59 Other: Voiding Method Toilet Toilet # Voids 1 Weight 91.626 kg 06/02/25 12:54 06/02/25 12:54
--- NOTE | 2025-06-02 15:22 | P.PN ---
Subjective Progress Note Date: 06/02/25 patient is a 59-year-old lady with past medical history significant for colon cancer on chemotherapy who presents the ER because of abdominal pain. Patient stated she was all right when on Wednesday she had a CT abdominal pelvis done with contrast, following that she started having nausea with vomiting. There was also complain of abdominal pain, abdominal pain was located in the lower quadrants, was intermittent, nonradiating, no aggravating or relieving factor associated with abdominal pain. Patient also noticed that she was not able to have a bowel movement. Patient was able to pass gas but no BM. Patient tried to use laxatives and lactulose with no relief. Patient did see her marketing and outreach coordinator oncologist yesterday and was prescribed additional medication with no relief. Because of these abdominal symptoms, patient came to the ER Initial lab work done in the ER showed WBC 8.31, hemoglobin 14.9, platelet count 219, sodium 142, potassium 4.1, BUN 14, creatinine 0.58, lactate 2.3 bilirubin 1.4, AST 45, ALT 29, total protein 8.8 [address] negative for infection CT abdominal pelvis done showed large bowel obstruction from stricture from primary chronic adenocarcinoma with metastatic disease within the liver, mesentery, pulm nodules Patient admitted to internal medicine service 06/02. Patient seen and examined. Still having Jose David pain. Denies any bowel movement. Passing gas occasionally REVIEW OF SYSTEMS: CONSTITUTIONAL: No fever, no malaise,. CARDIOVASCULAR: No chest pain, no palpitations, no syncope. PULMONARY: No shortness of breath, no cough, GASTROINTESTINAL:, no nausea, no vomiting NEUROLOGICAL: No headaches, no weakness, PHYSICAL EXAMINATION: GENERAL: The patient is alert and oriented x3, not in any acute distress. Well developed, well nourished. HEENT: Pupils are round and equally reacting to light. EOMI. No scleral icterus. No conjunctival pallor. Normocephalic, atraumatic. No pharyngeal erythema. No thyromegaly. CARDIOVASCULAR: S1 and S2 present. No murmurs, rubs, or gallops. PULMONARY: Chest is clear to auscultation, no wheezing or crackles. ABDOMEN: Distended, no bowel sounds. No palpable organomegaly. MUSCULOSKELETAL: No joint swelling or deformity. EXTREMITIES: No cyanosis, clubbing, or pedal edema. NEUROLOGICAL: Gross neurological examination did not reveal any focal deficits. SKIN: No rashes. Assessment and plan Large bowel obstruction Metastatic colon adenocarcinoma Lactic acidosis History of atrial fibrillation Bradycardia status post Micra pacemaker Hypertension Anxiety History of diabetes mellitus Monitor vital signs Monitor CBC Monitor CMP Keep patient n.p.o. Continue IV fluids Continue Coreg Xarelto on hold Cardiology evaluated, cleared patient for surgery Hematology oncology consulted Surgery following, planning diverting colostomy in the morning Labs and medication were reviewed.. Continue same treatment. Continue with symptomatic treatment. Resume home medication. Monitor labs and vitals. DVT and GI prophylaxis. Further recommendations as per clinical course of the patient Dictation was produced using [employer] dictation software. please excuse any grammatical, word or spelling errors. Objective - Vital Signs Vital signs: Vital Signs Temp 97.8 F 06/02/25 12:07 Pulse 86 06/02/25 12:07 Resp 18 06/02/25 12:07 BP 101/54 06/02/25 12:07 Pulse Ox 94 L 06/02/25 12:07 FiO2 Intake & Output 06/01/25 06/02/25 06/02/25 18:59 06:59 18:59 Weight 91.626 kg 91.626 kg Other: Voiding Method Toilet Toilet # Voids 1 - Labs CBC & Chem 7: 06/02/25 12:54 06/02/25 12:54 Labs: Abnormal Lab Results - Last 24 Hours (Table) 06/01/25 06/02/25 06/02/25 Range/Units 20:14 12:54 12:54 RDW 19.5 H (11.5-14.5) % MPV 9.2 L (9.5-12.2) fL Eosinophils # 0.02 L (0.04-0.35) 10*3/uL Carbon Dioxide 19 L (22-30) mmol/L Creatinine 0.44 L (0.52-1.04) mg/dL Glucose 108 H (74-99) mg/dL POC Glucose (mg/dL) 132 H (70-110) mg/dL
--- NOTE | 2025-06-02 15:25 | P.CONS ---
History of Present Illness - Reason for Consult Consult date: 06/02/25 Bowel obstruction, metastatic colon cancer - History of Present Illness The patient is a 59-year-old white female, well-known to myself. The patient was initially seen in 06/11, when admitted for bowel resection for ischemic bowel. The patient had developed right lower lobe PE, and SMV thrombosis. The patient was treated with anticoagulation, and was subsequently found to have a factor V Leiden mutation. She was recommended 1 year of anticoagulation and subsequent aspirin. The patient was seen in the office for the above, last in 06/12. She was referred back in 03/23 for new diagnosis. She had presented to [facility], complaining of diffuse abdominal pain over the past 4 to 5 days, constipation, and nausea with CT of the abdomen and pelvis showing a masslike thickening of the jejunum and ascending colon with possible perforation versus fistula. The patient was transferred to [facility], for surgical oncology consult. CT scan had shown evidence of bilateral lung nodules, as well as faint masses in the liver suspicious for metastatic disease. Her course was complicated By bradycardia, requiring a pacemaker placement. The patient's obstructive symptoms did improve with conservative management. EGD and colonoscopy on 03/08/2025 showed a large colonic mass 50 cm from the anal verge, with narrowing of the lumen. The scope could not be passed beyond the mass. Biopsies were positive for metastatic carcinoma consistent with colonic primary. The patient had a port placed, and was discharged with recommendations to start systemic therapy, for which she was referred to our office. The patient was started on FOLFOX on 04/11/2025, and is status post 4 cycles. Her last chemotherapy was in the week of 05/21/2025 The patient was seen in the office for follow-up on 05/31/2025. Repeat CT scan had not shown any evidence of progression. She has stated that she was having issues with constipation, after the CT scan. She was prescribed supportive medications for the same but apparently did not respond and subsequently developed abdominal distention, and nausea and vomiting. She therefore came came into the hospital, with CT of the abdomen pelvis showing obstruction from stricture at the site of the mass in the descending colon. The patient was made n.p.o., with surgery planned for 06/03/2025. She has also been seen by cardiology EKG showed paced rhythm. Review of Systems Constitutional: Reports poor appetite Eyes: denies blurred vision, denies pain Ears: deny: decreased hearing, ear discharge, earache, tinnitus Ears, nose, mouth and throat: Denies headache, Denies sore throat Cardiovascular: Reports as per HPI Respiratory: Denies cough Gastrointestinal: Reports abdominal pain, Reports bloating, Reports constipation, Reports nausea, Reports vomiting Genitourinary: Denies dysuria, Denies hematuria Menstruation: Reports postmenopausal Musculoskeletal: Denies myalgias Integumentary: Denies pruritus, Denies rash Neurological: Reports weakness Psychiatric: Denies anxiety, Denies depression Endocrine: Reports fatigue, Reports weight change Hematologic/Lymphatic: Reports as per HPI, Reports thrombophilia Past Medical History Past Medical History: Atrial Fibrillation, Heart Failure, Diabetes Mellitus, Deep Vein Thrombosis (DVT), Hypertension, Pulmonary Embolus (PE) Additional Past Medical History / Comment(s): BACK ISSUES, IRREGULAR HEART BEAT, BOWEL OBSTRUCTION History of Any Multi-Drug Resistant Organisms: None Reported Past Surgical History: Appendectomy, Bowel Resection, Section, Pacemaker Additional Past Surgical History / Comment(s): RIGHT FALLOPIAN TUBE REMOVED, PREVIOUS BOWEL OBSTRUCTION. pacemaker Past Anesthesia/Blood Transfusion Reactions: No Reported Reaction Type of Cardiac Device: Permanent Pacemaker Device Placement Date:: February of 2025 Past Psychological History: Anxiety, Depression Smoking Status: Former smoker Past Alcohol Use History: None Reported Past Drug Use History: None Reported - Past Family History Father Family Medical History: Coronary Artery Disease (CAD) Additional Family Medical History / Comment(s): "open heart surgery triple bypass" Mother Family Medical History: Pulmonary Embolus Medications and Allergies Home Medications Medication Instructions Recorded Confirmed Type HYDROcodone/APAP 10-325MG [[place] 1 tab PO QID PRN 02/18/17 06/01/25 History 10-325] ALPRAZolam [Xanax] 0.5 mg PO BID PRN 06/01/25 06/01/25 History OLANZapine [ZyPREXA] 2.5 - 5 mg PO DIRECTED 06/01/25 06/01/25 History Ondansetron [Zofran] 4 - 8 mg PO Q4H PRN MDD 32mg 06/01/25 06/01/25 History QUEtiapine FUMARATE [SEROquel] 300 mg PO HS 06/01/25 06/01/25 History Rivaroxaban [Xarelto] 10 mg PO DAILY 06/01/25 06/01/25 History Semaglutide [Ozempic] 0.5 mg SQ SA 06/01/25 06/01/25 History carvediloL [Coreg] 12.5 mg PO BID 06/01/25 06/01/25 History Allergies Allergy/AdvReac Type Severity Reaction Status Date / Time latex Allergy Swelling Verified 06/01/25 14:26 warfarin sodium Allergy GETS RED Verified 06/01/25 14:26 [From Coumadin] BUMPS ALL OVER Physical Exam Vitals: Vital Signs Temp Pulse Pulse Resp BP BP Pulse Ox 06/02/25 12:07 97.8 F 86 18 101/54 94 L 06/02/25 08:00 82 17 06/02/25 07:37 97.6 F 82 17 113/60 93 L 06/02/25 01:03 98.3 F 85 16 110/68 92 L 06/01/25 19:09 97.3 F L 84 17 118/73 94 L 06/01/25 18:44 65 16 130/68 98 06/01/25 17:00 89 20 120/74 98 06/01/25 16:00 87 20 120/70 98 Intake and Output 06/02/25 06/02/25 06/02/25 06:59 14:59 22:59 Other: Voiding Method Toilet # Voids 1 - Constitutional General appearance: no acute distress - EENT Eyes: EOMI, PERRLA ENT: hearing grossly normal, normal oropharynx - Neck Neck: no lymphadenopathy Thyroid: bilateral: normal size - Respiratory Respiratory: bilateral: CTA - Cardiovascular Rhythm: regular Heart sounds: normal: S1, S2 - Gastrointestinal General gastrointestinal: absent bowel sounds, distended - Integumentary Integumentary: normal - Neurologic Neurologic: CNII-XII intact - Musculoskeletal Musculoskeletal: generalized weakness, strength equal bilaterally - Psychiatric Psychiatric: A&O x's 3, appropriate affect Results CBC & Chem 7: 06/02/25 12:54 06/02/25 12:54 Labs: Abnormal Lab Results - Last 24 Hours (Table) 06/01/25 06/02/25 06/02/25 Range/Units 20:14 12:54 12:54 RDW 19.5 H (11.5-14.5) % MPV 9.2 L (9.5-12.2) fL Eosinophils # 0.02 L (0.04-0.35) 10*3/uL Carbon Dioxide 19 L (22-30) mmol/L Creatinine 0.44 L (0.52-1.04) mg/dL Glucose 108 H (74-99) mg/dL POC Glucose (mg/dL) 132 H (70-110) mg/dL Comments: EKG image reviewed CT scan - abdomen: report reviewed CT scan - pelvis: report reviewed Assessment and Plan (1) Large bowel obstruction Narrative/Plan: The patient has developed obstruction at the site of the primary tumor in the descending colon. Symptoms of nausea and vomiting are improved with bowel rest, but the patient remains distended. She has been passing small amounts of gas in termittently, but has not had a bowel movement, and on exam does not appear to have significant bowel sounds. Therefore, appropriately, surgical relief of obstruction is planned with diverting ostomy. -The patient had chemotherapy a week and a half ago. While the time interval since chemotherapy is not ideal for surgery, her WBC and platelets are normal, significantly reducing risk of the same. In any case this is essentially an emergent procedure. The patient is therefore an acceptable risk for the surgery, from the oncology standpoint. Current Visit: Yes Status: Acute Code(s): K56.609 - UNSP INTESTNL OBST, UNSP TO PARTIAL VERSUS COMPLETE OBST SNOMED Code(s): 228021187 (2) Colon cancer Narrative/Plan: The patient unfortunately presented with metastatic disease involving the liver, and most likely bilateral lungs. With chemotherapy, recent scans showed at least Stability. -The patient was supposed to have her next cycle of chemotherapy next week. This will be held, in view of the upcoming surgery. She has a follow-up appoi ntment in the office with the STEWARDESS SUPERVISOR in about 3 to 4 weeks. At that time, if sufficiently recovered, chemotherapy can be resumed. Current Visit: Yes Status: Acute Code(s): C18.9 - MALIGNANT NEOPLASM OF COLON, UNSPECIFIED SNOMED Code(s): 445781501 (3) Factor 5 Leiden mutation, heterozygous Narrative/Plan: The patient has a known hypercoagulable state, and previously has had provoked thrombosis after surgery. She would be at increased risk of the same, with the upcoming surgery, especially in the setting of metastatic cancer. I would therefore strongly recommend that the patient be started on full dose anticoagulation postoperatively, as soon as approved by the surgical service. Until bowel function returns, Lovenox can be utilized. She can subsequently be transitioned to a DOAC. Would recommend continuation of full dose anticoagulation for about 4 weeks, after which she can be transitioned to aspirin. Current Visit: Yes Status: Acute Code(s): D68.51 - ACTIVATED PROTEIN C RESISTANCE SNOMED Code(s): 031353275
[2025-06-02 18:12] LABS: Glucose,Whole Blood 102 mg/dL (70-110)
[2025-06-02] MEDS: MORPHINE SULFATE 4 MG/ML SYRINGE IVP PRN (19:57)
[2025-06-03 01:37] LABS: Glucose,Whole Blood 76 mg/dL (70-110)
[2025-06-03 06:52] LABS: Glucose,Whole Blood 88 mg/dL (70-110)
[2025-06-03 07:51] LABS: Basophils # (A) 0.03 10*3/uL (0.00-0.10); Basophils % (A) 0.5 %; Eosinophils # (A) 0.05 10*3/uL (0.04-0.35); Eosinophils % (A) 0.9 %; HCT 37.0 % (37.2-46.3); HGB 12.0 g/dL (12.0-15.0); Lymphocytes # (A) 2.11 10*3/uL (0.90-5.00); Lymphocytes % (A) 37.7 %; MCH 28.8 pg (27.0-32.0); MCHC 32.4 g/dL (32.0-37.0); MCV 88.9 fL (80.0-97.0); Monocytes # (A) 0.90 10*3/uL (0.20-1.00); Monocytes % (A) 16.1 %; Neutrophils # (A) 2.49 10*3/uL (1.80-7.70); Neutrophils % (A) 44.4 %; Platelet Count 127 10*3/uL (140-440); RBC 4.16 10*6/uL (4.10-5.20); RDW 19.5 % (11.5-14.5); WBC 5.60 10*3/uL (4.50-10.00)
[2025-06-03 08:17] LABS: ALT 18 U/L (4-34); AST 32 U/L (14-36); African American GFR (CKD) >90 (>60 ml/min/1.73 sqM); Albumin 4.0 g/dL (3.5-5.0); Albumin/Globulin Ratio 1.4; Alkaline Phosphatase 74 U/L (38-126); Anion Gap 14 mmol/L; Blood Urea Nitrogen 12 mg/dL (7-17); Calcium 9.1 mg/dL (8.4-10.2); Carbon Dioxide 19 mmol/L (22-30); Chloride 109 mmol/L (98-107); Globulin 2.9 g/dL; Glucose 83 mg/dL (74-99); Non-African American GFR(CKD) >90 (>60 ml/min/1.73 sqM); Potassium 3.7 mmol/L (3.5-5.1); Sodium 142 mmol/L (137-145); Total Protein 6.9 g/dL (6.3-8.2)
[2025-06-03] MEDS ORDERED: ROCURONIUM 10 MG/ML (5 ML VIAL) IV ONE (09:06)
[2025-06-03] MEDS ORDERED: MIDAZOLAM 2 MG/2 ML VIAL ONE (09:06)
[2025-06-03] MEDS ORDERED: SUCCINYLCHOLINE CHLORIDE 200 MG/10 ML VIAL IV ONE (09:06)
[2025-06-03] MEDS ORDERED: PROPOFOL 10 MG/ML 20 ML VIAL IV ONE (09:06)
[2025-06-03] MEDS ORDERED: PHENYLEPHRINE 10 MG/ML VIAL ONE (09:06)
[2025-06-03] MEDS ORDERED: NEOSTIGMINE 1 MG/ML 10 ML VIAL ONE (09:06)
[2025-06-03] MEDS ORDERED: GLYCOPYRROLATE 0.2 MG/ML 2 ML VIAL ONE (09:06)
[2025-06-03] MEDS ORDERED: fentaNYL (PF) 50 MCG/ML 2 ML AMP ONE (09:06)
[2025-06-03] MEDS ORDERED: LIDOCAINE 1% INJ 10MG/ML (20 ML MDV) ONE (09:06)
[2025-06-03] MEDS: SODIUM CHLORIDE 0.9% 1,000 ML IV ONE ×2 (09:10→10:45)
[2025-06-03] MEDS: LIDOCAINE 1%-EPI 1:100,000 20 ML VIAL SQ ONE (09:50)
[2025-06-03] MEDS: IV FLUID CONTINUATION 1,000 ML IV ONE ×3 (11:14→11:40)
[2025-06-03] MEDS: HYDROmorphone 0.5 MG/0.5 ML SYRINGE IVP PRN (11:34)
--- NOTE | 2025-06-03 11:35 | P.OP ---
Date of Procedure: 06/03/25 Preoperative Diagnosis: Large bowel obstruction Colon cancer, metastatic Postoperative Diagnosis: Large bowel obstruction Colon cancer, metastatic Procedure(s) Performed: Lap converted to open diverting transverse loop colostomy Anesthesia: GUME Surgeon: Anup Hall Pathology: none sent Condition: stable Disposition: floor Indications for Procedure: 59-year-old female presented to the emergency department with a few days of inability to pass gas and have bowel movement. She is known to have a stricture secondary to colon cancer of the left colon. She is currently undergoing treatment with oncology. She has had 4 rounds of chemotherapy per patient and patient's significant other. On imaging, it does appear that patient has complete obstruction at the site of the mass and that the disease is metastatic which is known to oncologist. Secondary to these findings, plan is for diverting ostomy creation to relieve the large bowel obstruction. Risks, benefits and alternatives were provided to the patient including risks of bleeding, infection and inability to heal secondary to chemotherapy. Operative Findings: Significant intra-abdominal adhesive disease Descending colon obstruction Description of Procedure: Patient was brought to the operative suite and placed in supine position on the operative table. Sedation was provided by anesthesia and the patient underwent endotracheal intubation. The patient was then prepped and draped in regular sterile fashion. Local anesthetic was administered in the left upper quadrant. Incision was made and the abdomen was entered under direct visualization using a 5 mm port. Pneumoperitoneum was achieved and exam of the intra-abdominal cavity was performed. Significant amount of intra-abdominal adhesions were noted from patient's previous laparotomy. Decision was made to convert to open procedure as the significant amount of adhesions would be quite extensive to takedown. Midline incision was made superior to the umbilicus and dissection was carried to the fascia. The fascia was incised along the length of the incision. Careful dissection was performed to take down adhesions in the superior portion of the abdomen with anticipation of creating transverse loop colostomy. Omentum was split using LigaSure device to create more ability for transverse colon to reach anticipated stoma site. Further dissection along the splenic flexure was also made to create less tension on the ostomy. Once enough dissection was performed, ostomy site was decided upon and circular incision was made. Dissection was carried to the fascia. The fascia was incised in a cruciate manner and the muscle was split. The peritoneum was entered and the transverse colon was delivered through the site. Appropriate amount of colon was noted without any significant tension. At this point, copious amounts irrigation was placed in the abdomen and suctioned. Hemostasis was maintained. A midline incision was closed with loop PDS suture. Skin leanne were placed. An vertical incision was made at the transverse colon to create a loop transverse colostomy. The ostomy was then matured in standard Lizett fashion. Hemostasis was noted to be maintained. Sterile dressings were applied. Sponge and instrument count were correct x 2.
[2025-06-03 11:41] LABS: Glucose,Whole Blood 121 mg/dL (70-110)
[2025-06-03] MEDS: SODIUM CHLORIDE 0.9% 1,000 ML IV SCH (12:01)
--- NOTE | 2025-06-03 13:44 | P.PN ---
Subjective Progress Note Date: 06/03/25 History of present illness: Patient is a pleasant 59-year-old female with significant past medical history of bradycardia status post Micra pacemaker implantation, hypertension, colon cancer, anxiety, diabetes type 2, atrial fibrillation who presented with complaints of abdominal pain. Cardiology has been consulted for preoperative evaluation given large bowel obstruction. She denies any chest pain or pressure no shortness of breath, palpitations, heart racing episodes. No swelling. She is currently uncertain of her Xarelto dose. She did have prior left heart catheterization in 2017 that showed normal coronary arteries. EKG shows paced rhythm with no significant ST or T wave changes. 06/02/25 Pt is doing well post surgery. No chest pain or pressure. No shortness of breath. PHYSICAL EXAMINATION: This is a 59 year-old female in no apparent distress at the time of my examination. HEENT: Head is atraumatic, normocephalic. Pupils are equal, round. Sclerae anicteric. Conjunctivae are clear. Mucous membranes of the mouth are moist. Neck is supple. There is no jugular venous distention. No carotid bruit is heard. CHEST EXAMINATION: Lungs are clear to auscultation. No chest wall tenderness is noted on palpation or with deep breathing. HEART EXAMINATION: Heart regular rate and rhythm. S1, S2 heard. No murmurs, gallops or rub. ABDOMEN: Distended EXTREMITIES: 2+ peripheral pulses with no evidence of peripheral edema and no calf tenderness noted. NEUROLOGIC EXAMINATION: Patient is awake, alert and oriented x3. IMPRESSION AND PLAN: Bradycardia status post Micra pacemaker Hypertension Colon cancer Anxiety Diabetes type 2 Atrial fibrillation Large bowel obstruction Preoperative evaluation PLAN: Resume anticoagulation once cleared by surgery post procedure. Continue current regimen. Cardiology to sign off. Follow up with primary custodial engineer in 1-2 weeks. I am dictating on behalf of Dr. Luis A Sheffield's history/physical and assessment/plan. Objective - Vital Signs Vital signs: Vital Signs Temp 99.3 F 06/03/25 11:14 Pulse 83 06/03/25 12:15 Resp 18 06/03/25 12:15 BP 134/71 06/03/25 12:15 Pulse Ox 93 L 06/03/25 12:15 FiO2 Intake & Output 06/02/25 06/03/25 06/03/25 18:59 06:59 18:59 Intake Total 2500 Output Total 198 Balance 2302 Intake: IV 2500 Output: Urine 175 Estimated Blood Loss 23 Other: Voiding Method Toilet Toilet Toilet # Voids 5 3 - Labs CBC & Chem 7: 06/03/25 07:07 06/03/25 07:07 Labs: Abnormal Lab Results - Last 24 Hours (Table) 06/03/25 06/03/25 06/03/25 Range/Units 07:07 07:07 11:40 Hct 37.0 L (37.2-46.3) % RDW 19.5 H (11.5-14.5) % Plt Count 127 L (140-440) 10*3/uL MPV 9.4 L (9.5-12.2) fL Chloride 109 H (98-107) mmol/L Carbon Dioxide 19 L (22-30) mmol/L POC Glucose (mg/dL) 121 H (70-110) mg/dL
--- NOTE | 2025-06-03 15:44 | P.PN ---
Subjective Progress Note Date: 06/03/25 patient is a 59-year-old lady with past medical history significant for colon cancer on chemotherapy who presents the ER because of abdominal pain. Patient stated she was all right when on Wednesday she had a CT abdominal pelvis done with contrast, following that she started having nausea with vomiting. There was also complain of abdominal pain, abdominal pain was located in the lower quadrants, was intermittent, nonradiating, no aggravating or relieving factor associated with abdominal pain. Patient also noticed that she was not able to have a bowel movement. Patient was able to pass gas but no BM. Patient tried to use laxatives and lactulose with no relief. Patient did see her hospitalist program director oncologist yesterday and was prescribed additional medication with no relief. Because of these abdominal symptoms, patient came to the ER Initial lab work done in the ER showed WBC 8.31, hemoglobin 14.9, platelet count 219, sodium 142, potassium 4.1, BUN 14, creatinine 0.58, lactate 2.3 bilirubin 1.4, AST 45, ALT 29, total protein 8.8 [address]A negative for infection CT abdominal pelvis done showed large bowel obstruction from stricture from primary chronic adenocarcinoma with metastatic disease within the liver, mesentery, pulm nodules Patient admitted to internal medicine service 06/02. Patient seen and examined. Still having Jose David pain. Denies any bowel movement. Passing gas occasionally 06/03/2025 Patient evaluated in follow-up she is postsurgical diverting colostomy placement. NG tube remains in place. She is passing gas for the ostomy. Her labs today reveal a white blood cell count of 5.60, hemoglobin 12.0, sodium level of 142 potassium 3.7, BUN of 12 creatinine of 0.53. Her LFTs have normalized. Cardiology is following the patient. REVIEW OF SYSTEMS: CONSTITUTIONAL: No fever, no malaise,. CARDIOVASCULAR: No chest pain, no palpitations, no syncope. PULMONARY: No shortness of breath, no cough, GASTROINTESTINAL:, no nausea, no vomiting NEUROLOGICAL: No headaches, no weakness, PHYSICAL EXAMINATION: GENERAL: The patient is alert and oriented x3, not in any acute distress. Well developed, well nourished. HEENT: Pupils are round and equally reacting to light. EOMI. No scleral icterus. No conjunctival pallor. Normocephalic, atraumatic. No pharyngeal erythema. No thyromegaly. CARDIOVASCULAR: S1 and S2 present. No murmurs, rubs, or gallops. PULMONARY: Chest is clear to auscultation, no wheezing or crackles. ABDOMEN: Distended, no bowel sounds. No palpable organomegaly. Midline abdominal incision present as well as left quadrant ostomy MUSCULOSKELETAL: No joint swelling or deformity. EXTREMITIES: No cyanosis, clubbing, or pedal edema. NEUROLOGICAL: Gross neurological examination did not reveal any focal deficits. SKIN: No rashes. Assessment and plan Large bowel obstruction status post diverting ostomy Metastatic colon adenocarcinoma Lactic acidosis History of atrial fibrillation History of DVT PE Bradycardia status post Micra pacemaker Hypertension Anxiety History of diabetes mellitus GI prophylaxis Protonix DVT prophylaxis Lovenox Full code Plan Monitor vital signs Monitor CBC Monitor CMP Keep patient n.p.o. NG tube in place Continue IV fluids Continue Coreg Xarelto on hold; started on lovenox BID Cardiology evaluated, cleared patient for surgery Hematology oncology consulted Surgery following The impression and plan of care has been dictated by Lorin Velazquez, Nurse Practitioner as directed. Dr. Kacey MD I have performed a history and physical examination and medical decision making of this patient, discussed the same with the dictator, and agree with the dictators assessment and plan as written, documented as a scribe. Based on total visit time, I have performed more than 50% of this visit. Objective - Vital Signs Vital signs: Vital Signs Temp 98.3 F 06/03/25 14:00 Pulse 83 06/03/25 14:00 Resp 16 06/03/25 14:00 BP 136/78 06/03/25 14:00 Pulse Ox 91 L 06/03/25 14:00 FiO2 Intake & Output 06/02/25 06/03/25 06/03/25 18:59 06:59 18:59 Intake Total 2500 Output Total 198 Balance 2302 Intake: IV 2500 Output: Urine 175 Estimated Blood Loss 23 Other: Voiding Method Toilet Toilet Toilet # Voids 5 3 - Labs CBC & Chem 7: 06/03/25 07:07 06/03/25 07:07 Labs: Abnormal Lab Results - Last 24 Hours (Table) 06/03/25 06/03/25 06/03/25 Range/Units 07:07 07:07 11:40 Hct 37.0 L (37.2-46.3) % RDW 19.5 H (11.5-14.5) % Plt Count 127 L (140-440) 10*3/uL MPV 9.4 L (9.5-12.2) fL Chloride 109 H (98-107) mmol/L Carbon Dioxide 19 L (22-30) mmol/L POC Glucose (mg/dL) 121 H (70-110) mg/dL Assessment and Plan Time with Patient: Less than 30
[2025-06-03 17:27] LABS: Glucose,Whole Blood 93 mg/dL (70-110)
[2025-06-04 00:37] LABS: Glucose,Whole Blood 97 mg/dL (70-110)
[2025-06-04 05:36] LABS: Glucose,Whole Blood 103 mg/dL (70-110)
[2025-06-04 08:22] LABS: HCT 38.3 % (37.2-46.3); HGB 12.1 g/dL (12.0-15.0); MCH 28.5 pg (27.0-32.0); MCHC 31.6 g/dL (32.0-37.0); MCV 90.3 FL (80.0-97.0); NRBC Per 100 WBC 0 X 10*3/uL (0.00-0.01); Platelet Count 114 X 10*3/uL (140-440); RBC 4.24 X 10*6/uL (4.10-5.20); RDW 20.2 % (11.5-14.5); WBC 9.17 X 10*3/uL (4.50-10.00)
[2025-06-04 08:23] LABS: Basophils # (A) 0.05 X 10*3/uL (0.00-0.10); Basophils % (A) 0.5 %; Eosinophils # (A) 0.02 X 10*3/uL (0.04-0.35); Eosinophils % (A) 0.2 %; Immature Grans, Automated 0.40 %; Lymphocytes # (A) 1.96 X 10*3/uL (0.90-5.00); Lymphocytes % (A) 21.4 %; Monocytes # (A) 1.21 X 10*3/uL (0.20-1.00); Monocytes % (A) 13.2 %; Neutrophils # (A) 5.89 X 10*3/uL (1.80-7.70); Neutrophils % (A) 64.3 %
[2025-06-04 08:37] LABS: ALT 16 U/L (8-44); AST 32 U/L (13-35); Albumin 3.6 g/dL (3.8-4.9); Albumin/Globulin Ratio 1.57 Ratio (1.60-3.17); Alkaline Phosphatase 57 U/L (41-126); Anion Gap 17.10 mmol/L (4.00-12.00); BUN/Creat Ratio 10.80 Ratio (12.00-20.00); Blood Urea Nitrogen 5.4 mg/dL (9.0-27.0); Calcium 8.3 mg/dL (8.7-10.3); Carbon Dioxide 16.9 mmol/L (21.6-31.8); Chloride 104 mmol/L (96-109); Globulin 2.3 g/dL (1.6-3.3); Glucose 97 mg/dL (70-110); Potassium 3.9 mmol/L (3.5-5.5); Sodium 138 mmol/L (135-145); Total Protein 5.9 g/dL (6.2-8.2)
[2025-06-04] MEDS: ENOXAPARIN 100 MG/ML SYRINGE SQ SCH (08:54)
[2025-06-04 12:15] LABS: Glucose,Whole Blood 105 mg/dL (70-110)
--- NOTE | 2025-06-04 12:29 | P.PN ---
Subjective Progress Note Date: 06/04/25 06/04/25 - She is seen and examined at bedside this morning. States that she feels better, however has generalized postoperative pain, which is not unexpected. She is postop day #1, and reports that her bowels are beginning to move with some evidence in her ostomy. On 06/03/2025 she underwent a laparoscopic converted to open diverting transverse loop colostomy. She denies any nausea, vomiting or new/worsening abdominal pain. REVIEW OF SYSTEMS: Pertinent positives and negatives noted in HPI. Objective - Vital Signs Vital signs: Vital Signs Temp 98.5 F 06/04/25 07:09 Pulse 92 06/04/25 07:09 Resp 20 06/04/25 07:09 BP 125/75 06/04/25 07:09 Pulse Ox 93 L 06/04/25 07:09 FiO2 Intake & Output 06/03/25 06/04/25 06/04/25 18:59 06:59 18:59 Intake Total 2500 Output Total 198 1700 Balance 2302 -1700 Intake: IV 2500 Oral 0 Output: Gastric Drainage 400 Urine 175 1300 Estimated Blood Loss 23 Other: Voiding Method Toilet Indwelling Catheter # Bowel Movements 0 - Exam Physical Exam: General: nontoxic, no distress, appears at stated age Derm: warm, dry, intact Head: atraumatic, normocephalic, symmetric Eyes: EOMI, anicteric sclera Mouth: no lip lesion, mucus membranes moist Cardiovascular: S1 S2 reg, no murmur, rubs, or gallops Lungs: CTA bilateral, no rales, no accessory muscle use Abdominal: Soft, moderately tender to palpation; ostomy bag present, with minimal blood noted at the ostomy seal, well-healing abdominal incision without evidence of erythema, edema or drainage Extremities: no gross muscle atrophy, no edema, no contractures Neuro: Alert, Oriented, CNII-XII grossly intact, gait normal Psych: well appearing, appropriate affect - Labs CBC & Chem 7: 06/04/25 04:31 06/04/25 04:31 Labs: Abnormal Lab Results - Last 24 Hours (Table) 06/04/25 06/04/25 Range/Units 04:31 04:31 MCHC 31.6 L (32.0-37.0) g/dL RDW 20.2 H (11.5-14.5) % Plt Count 114 L (140-440) X 10*3/uL MPV 8.9 L (9.5-12.2) FL Monocytes # 1.21 H (0.20-1.00) X 10*3/uL Eosinophils # 0.02 L (0.04-0.35) X 10*3/uL Carbon Dioxide 16.9 L (21.6-31.8) mmol/L Anion Gap 17.10 H (4.00-12.00) mmol/L BUN 5.4 L (9.0-27.0) mg/dL Creatinine 0.5 L (0.6-1.5) mg/dL BUN/Creatinine Ratio 10.80 L (12.00-20.00) Ratio Calcium 8.3 L (8.7-10.3) mg/dL Total Protein 5.9 L (6.2-8.2) g/dL Albumin 3.6 L (3.8-4.9) g/dL Albumin/Globulin Ratio 1.57 L (1.60-3.17) Ratio Assessment and Plan Assessment: #Large bowel obstruction, secondary to primary tumor in the descending colon, postop day #1 following lap converted to open diverting transverse loop colostomy #Colon cancer - Nausea and vomiting are improved - Endorses beginning to notice some bowel movements - Bowel sounds are present, albeit slow - General Surgery continues to follow - Next cycle of chemotherapy was supposed to be this week, will be held for upcoming surgery; follow-up in office in 3-4 weeks and determine whether she is able to resume chemotherapy at that time #Factor V Leiden mutation, heterozygous - She is not a known hypercoagulable state, previously had provoked thrombosis following a surgery - She would be at increased risk of the same, being postop day #1 as well as in the setting of metastatic cancer - Recommendation is a full dose anticoagulation postoperatively as soon as approved by general surgery - Until bowel function resumes, Lovenox can be appropriate; can be subsequently transitioned to DOAC - Full dose anticoagulation for approximately 4 weeks, following which she can be transition to aspirin Dictation was produced using [employer] dictation software. please excuse any grammatical, word or spelling errors. Alphonso Almanzar MD PGY-2 IM Patient seen with resident and agree with assessment and plan as outlined above. She is currently postoperative day 1 from transverse loop colostomy due to known primary colon mass without any immediate postoperative complications. She has completed 4 cycles of FOLFOX with cycle 4 on 05/23/2025 with evidence of stable disease radiographically. From a medical oncology perspective, no acute interventions are required at this time. Will arrange for follow-up outpatient prior to resuming chemotherapy. Gertrude Rausch MD
--- NOTE | 2025-06-04 14:13 | P.PN ---
Progress Note - Text Progress Note Date: 06/04/25 No acute events overnight. Ostomy is functioning. Pain is controlled. Denies fevers, chills, nausea, and vomiting VSS General-NAD CVS-RRR Lungs-NLB Abdomen-soft, NTND, Incisions C/D/I 59 year old female s/p Laparoscopic Converted to Open Diverting Ostomy for LBO -Discontinue Nasogastric Tube -Start Clear Liquid Diet -Discontinue Gagnon Catheter -OOB, ambulate, IS -AM labs [facility] [phone]
[2025-06-04 18:12] LABS: Glucose,Whole Blood 126 mg/dL (70-110)
[2025-06-04] MEDS ORDERED: BENZOCAINE SPRAY 1 EACH MUCOUS MEM PRN (20:16)
[2025-06-04] MEDS ORDERED: BENZOCAINE/MENTHOL LOZENG 1 EACH LOZENGE MUCOUS MEM PRN (20:16)
--- NOTE | 2025-06-04 20:26 | P.PN ---
Subjective Progress Note Date: 06/04/25 patient is a 59-year-old lady with past medical history significant for colon cancer on chemotherapy who presents the ER because of abdominal pain. Patient stated she was all right when on Wednesday she had a CT abdominal pelvis done with contrast, following that she started having nausea with vomiting. There was also complain of abdominal pain, abdominal pain was located in the lower quadrants, was intermittent, nonradiating, no aggravating or relieving factor associated with abdominal pain. Patient also noticed that she was not able to have a bowel movement. Patient was able to pass gas but no BM. Patient tried to use laxatives and lactulose with no relief. Patient did see her quality assurance specialist oncologist yesterday and was prescribed additional medication with no relief. Because of these abdominal symptoms, patient came to the ER Initial lab work done in the ER showed WBC 8.31, hemoglobin 14.9, platelet count 219, sodium 142, potassium 4.1, BUN 14, creatinine 0.58, lactate 2.3 bilirubin 1 .4, AST 45, ALT 29, total protein 8.8 [address]A negative for infection CT abdominal pelvis done showed large bowel obstruction from stricture from primary chronic adenocarcinoma with metastatic disease within the liver, mesentery, pulm nodules Patient admitted to internal medicine service 06/02. Patient seen and examined. Still having Jose David pain. Denies any bowel movement. Passing gas occasionally 06/03/2025 Patient evaluated in follow-up she is postsurgical diverting colostomy placement. NG tube remains in place. She is passing gas for the ostomy. Her labs today reveal a white blood cell count of 5.60, hemoglobin 12.0, sodium level of 142 potassium 3.7, BUN of 12 creatinine of 0.53. Her LFTs have normalized. Cardiology is following the patient. 06/04/2025 Patient is seen in follow-up status post diverting colostomy placement and ostomy nurse at bedside with serous drainage noted and some gas has started per nursing staff. Patient continues to report significant abdominal tenderness and is maintained on IV pain medications. Recommend resuming oral once tolerating more diet. Patient is being initiated on clear liquids and continues with NG tube. Recommend incentive spirometer use and would also recommend consulting PT/OT therapy as patient appears significantly weak. Patient reports plan on returning home once discharged. Oncology following as patient was scheduled for treatment this week although is being postponed and will follow-up once cleared by surgery. Patient is currently afebrile and denies any nausea or vomiting at this time. REVIEW OF SYSTEMS: CONSTITUTIONAL: No fever, no malaise,. CARDIOVASCULAR: No chest pain, no palpitations, no syncope. PULMONARY: No shortness of breath, no cough, GASTROINTESTINAL:, no nausea, no vomiting, reports continued severe abdominal pain and soreness NEUROLOGICAL: No headaches, reports of generalized weakness PHYSICAL EXAMINATION: GENERAL: The patient is alert and oriented x3, not in any acute distress. Well d eveloped, well nourished. Obese HEENT: Pupils are round and equally reacting to light. EOMI. No scleral icterus. No conjunctival pallor. Normocephalic, atraumatic. No pharyngeal erythema. No thyromegaly. CARDIOVASCULAR: S1 and S2 present. No murmurs, rubs, or gallops. PULMONARY: Chest is clear to auscultation, no wheezing or crackles. ABDOMEN: Distended, hypoactive bowel sounds. No palpable organomegaly. Midline abdominal incision present as well as left quadrant ostomy with serous drainage noted, some gas MUSCULOSKELETAL: No joint swelling or deformity. EXTREMITIES: No cyanosis, clubbing, or pedal edema. NEUROLOGICAL: Gross neurological examination did not reveal any focal deficits. Diffusely weak SKIN: No rashes. 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 Ostomy nurse at bedside initiating wound care and ostomy education. Patient is tearful and per nursing staff was somewhat hesitant to be involved in treatment and care of and became more tearful Patient continues with NG tube and will continue at this time, starting clear liquids per general surgery Some home medications reviewed and resumed as appropriate Recommend cautious IV hydration and will follow-up on repeat labs Patient will need to resume anticoagulation once cleared by surgery as patient has extensive history of atrial fibrillation as well as DVT and PE Hematology/oncology following and will be following up in the outpatient setting on discharge. Current treatment currently on hold given surgery and will follow-up once cleared by surgery Encourage increase activity as tolerated and possibly sitting up in the chair, will have PT/OT therapy evaluate the patient. Recommend incentive spirometer and education on use at least 10 times every hour while awake The impression and plan of care has been dictated by Katharine Dugan, nurse Practitioner as directed. Dr. Kacey MD I have performed a history and physical examination and medical decision making of this patient, discussed the same with the dictator, and agree with the dictators assessment and plan as written, documented as a scribe. Based on total visit time, I have performed more than 50% of this visit. Objective - Vital Signs Vital signs: Vital Signs Temp 97.7 F 06/04/25 00:47 Pulse 91 06/04/25 00:47 Resp 16 06/04/25 00:47 BP 127/76 06/04/25 00:47 Pulse Ox 94 L 06/04/25 00:47 FiO2 Intake & Output 06/03/25 06/03/25 06/04/25 06:59 18:59 06:59 Intake Total 2500 Output Total 198 1700 Balance 2302 -1700 Intake: IV 2500 Oral 0 Output: Gastric Drainage 400 Urine 175 1300 Estimated Blood Loss 23 Other: Voiding Method Toilet Toilet Indwelling Catheter # Voids 3 # Bowel Movements 0 - Labs CBC & Chem 7: 06/04/25 04:31 06/04/25 04:31 Labs: Abnormal Lab Results - Last 24 Hours (Table) 06/03/25 06/03/25 06/03/25 Range/Units 07:07 07:07 11:40 Hct 37.0 L (37.2-46.3) % RDW 19.5 H (11.5-14.5) % Plt Count 127 L (140-440) 10*3/uL MPV 9.4 L (9.5-12.2) fL Chloride 109 H (98-107) mmol/L Carbon Dioxide 19 L (22-30) mmol/L POC Glucose (mg/dL) 121 H (70-110) mg/dL
[2025-06-04] MEDS: QUEtiapine 100 MG TAB PO SCH (21:50)
[2025-06-05 00:02] LABS: Glucose,Whole Blood 136 mg/dL (70-110)
[2025-06-05 05:45] LABS: Glucose,Whole Blood 120 mg/dL (70-110)
[2025-06-05 08:35] LABS: Basophils # (A) 0.02 X 10*3/uL (0.00-0.10); Basophils % (A) 0.3 %; Eosinophils # (A) 0.09 X 10*3/uL (0.04-0.35); Eosinophils % (A) 1.4 %; HCT 35.0 % (37.2-46.3); HGB 10.9 g/dL (12.0-15.0); Immature Grans, Automated 0.50 %; Lymphocytes # (A) 1.67 X 10*3/uL (0.90-5.00); Lymphocytes % (A) 25.7 %; MCH 27.9 pg (27.0-32.0); MCHC 31.1 g/dL (32.0-37.0); MCV 89.5 FL (80.0-97.0); Monocytes # (A) 0.90 X 10*3/uL (0.20-1.00); Monocytes % (A) 13.9 %; NRBC Per 100 WBC 0 X 10*3/uL (0.00-0.01); Neutrophils # (A) 3.78 X 10*3/uL (1.80-7.70); Neutrophils % (A) 58.2 %; Platelet Count 94 X 10*3/uL (140-440); RBC 3.91 X 10*6/uL (4.10-5.20); RDW 19.9 % (11.5-14.5); WBC 6.49 X 10*3/uL (4.50-10.00)
[2025-06-05 08:43] LABS: Anion Gap 11.40 mmol/L (4.00-12.00); BUN/Creat Ratio 11.75 Ratio (12.00-20.00); Blood Urea Nitrogen 4.7 mg/dL (9.0-27.0); Calcium 8.4 mg/dL (8.7-10.3); Carbon Dioxide 20.6 mmol/L (21.6-31.8); Chloride 103 mmol/L (96-109); Glucose 120 mg/dL (70-110); Magnesium 1.8 mg/dL (1.5-2.4); Potassium 3.4 mmol/L (3.5-5.5); Sodium 135 mmol/L (135-145)
[2025-06-05] MEDS ORDERED: Potassium Replacement Protocol 1 EACH MISC MISCELLANE PRN (10:39)
[2025-06-05] MEDS: POTASSIUM CHLORIDE ER 20 MEQ TAB.ER PO SCH (10:50)
[2025-06-05 13:40] LABS: Glucose,Whole Blood 132 mg/dL (70-110)
--- NOTE | 2025-06-05 15:04 | P.PN ---
Subjective Progress Note Date: 06/05/25 Patient seen and examined at bedside. Doing well. Ostomy functioning. Pain controlled. Objective - Vital Signs Vital signs: Vital Signs Temp 98.6 F 06/05/25 13:42 Pulse 82 06/05/25 13:42 Resp 18 06/05/25 13:42 BP 91/57 06/05/25 13:42 Pulse Ox 96 06/05/25 13:42 FiO2 Intake & Output 06/04/25 06/05/25 06/05/25 18:59 06:59 18:59 Intake Total 300 240 Output Total 700 Balance -700 300 240 Intake: Oral 300 240 Output: Urine 700 Other: Voiding Method Indwelling Catheter Toilet Toilet # Bowel Movements 1 - Constitutional General appearance: Present: cooperative, no acute distress - Gastrointestinal Gastrointestinal Comment(s): Midline incision site clean, dry and intact, ostomy pink, patent with output - Psychiatric Psychiatric: Present: A&O x's 3 - Labs CBC & Chem 7: 06/05/25 04:40 06/05/25 14:06 Labs: Abnormal Lab Results - Last 24 Hours (Table) 06/04/25 06/05/25 06/05/25 Range/Units 18:11 00:00 04:40 RBC 3.91 L (4.10-5.20) X 10*6/uL Hgb 10.9 L (12.0-15.0) g/dL Hct 35.0 L (37.2-46.3) % MCHC 31.1 L (32.0-37.0) g/dL RDW 19.9 H (11.5-14.5) % Plt Count 94 L (140-440) X 10*3/uL Potassium (3.5-5.5) mmol/L Carbon Dioxide (21.6-31.8) mmol/L BUN (9.0-27.0) mg/dL Creatinine (0.6-1.5) mg/dL BUN/Creatinine Ratio (12.00-20.00) Ratio Glucose (70-110) mg/dL POC Glucose (mg/dL) 126 H 136 H (70-110) mg/dL Calcium (8.7-10.3) mg/dL 06/05/25 06/05/25 06/05/25 Range/Units 04:40 05:43 13:39 RBC (4.10-5.20) X 10*6/uL Hgb (12.0-15.0) g/dL Hct (37.2-46.3) % MCHC (32.0-37.0) g/dL RDW (11.5-14.5) % Plt Count (140-440) X 10*3/uL Potassium 3.4 L (3.5-5.5) mmol/L Carbon Dioxide 20.6 L (21.6-31.8) mmol/L BUN 4.7 L (9.0-27.0) mg/dL Creatinine 0.4 L (0.6-1.5) mg/dL BUN/Creatinine Ratio 11.75 L (12.00-20.00) Ratio Glucose 120 H (70-110) mg/dL POC Glucose (mg/dL) 120 H 132 H (70-110) mg/dL Calcium 8.4 L (8.7-10.3) mg/dL Assessment and Plan Plan: Postop day #2, diverting colostomy creation. Ostomy is functioning with significant output. Patient tolerating clear liquid diet. Advance to regular diet. Continue local wound care. Patient has been evaluated by ostomy team. Likely stable for discharge in the next day or so.
[2025-06-05] MEDS: ACETAMINOPHEN TAB 325 MG TAB PO PRN (20:39)
--- NOTE | 2025-06-06 04:25 | P.PN ---
Subjective Progress Note Date: 06/05/25 patient is a 59-year-old lady with past medical history significant for colon cancer on chemotherapy who presents the ER because of abdominal pain. Patient stated she was all right when on Wednesday she had a CT abdominal pelvis done with contrast, following that she started having nausea with vomiting. There was also complain of abdominal pain, abdominal pain was located in the lower quadrants, was intermittent, nonradiating, no aggravating or relieving factor associated with abdominal pain. Patient also noticed that she was not able to have a bowel movement. Patient was able to pass gas but no BM. Patient tried to use laxatives and lactulose with no relief. Patient did see her waredresser oncologist yesterday and was prescribed additional medication with no relief. Because of these abdominal symptoms, patient came to the ER Initial lab work done in the ER showed WBC 8.31, hemoglobin 14.9, platelet count 219, sodium 142, potassium 4.1, BUN 14, creatinine 0.58, lactate 2.3 bilirubin 1 .4, AST 45, ALT 29, total protein 8.[address] negative for infection CT abdominal pelvis done showed large bowel obstruction from stricture from primary chronic adenocarcinoma with metastatic disease within the liver, mesentery, pulm nodules Patient admitted to internal medicine service 06/02. Patient seen and examined. Still having Jose David pain. Denies any bowel movement. Passing gas occasionally 06/03/2025 Patient evaluated in follow-up she is postsurgical diverting colostomy placement. NG tube remains in place. She is passing gas for the ostomy. Her labs today reveal a white blood cell count of 5.60, hemoglobin 12.0, sodium level of 142 potassium 3.7, BUN of 12 creatinine of 0.53. Her LFTs have normalized. Cardiology is following the patient. 06/04/2025 Patient is seen in follow-up status post diverting colostomy placement and ostomy nurse at bedside with serous drainage noted and some gas has started per nursing staff. Patient continues to report significant abdominal tenderness and is maintained on IV pain medications. Recommend resuming oral once tolerating more diet. Patient is being initiated on clear liquids and continues with NG tube. Recommend incentive spirometer use and would also recommend consulting PT/OT therapy as patient appears significantly weak. Patient reports plan on returning home once discharged. Oncology following as patient was scheduled for treatment this week although is being postponed and will follow-up once cleared by surgery. Patient is currently afebrile and denies any nausea or vomiting at this time. 06/05/2025 Patient is seen in follow-up today currently sitting up in the chair had NG tube and indwelling Gagnon catheter removed awaiting to void. Patient diet is being advanced and patient slowly advancing as tolerated. Patient reports is having stool and gas from the ostomy and will continue with education regarding care of ostomy. Patient has been encouraged to increase activity as tolerated and continue the use of incentive spirometer at least 10 times every hour while awake. Potassium mildly low at 3.4 and being replaced per protocol. Will follow-up on repeat labs. Replace electrolytes per protocol. REVIEW OF SYSTEMS: CONSTITUTIONAL: No fever, no malaise,. CARDIOVASCULAR: No chest pain, no palpitations, no syncope. PULMONARY: No shortness of breath, no cough, GASTROINTESTINAL:, no nausea, no vomiting, reports continued abdominal pain and soreness NEUROLOGICAL: No headaches, reports of generalized weakness PHYSICAL EXAMINATION: GENERAL: The patient is alert and oriented x3, not in any acute distress. Well developed, well nourished. Obese HEENT: Pupils are round and equally reacting to light. EOMI. No scleral icterus. No conjunctival pallor. Normocephalic, atraumatic. No pharyngeal erythema. No thyromegaly. CARDIOVASCULAR: S1 and S2 present. No murmurs, rubs, or gallops. PULMONARY: Chest is clear to auscultation, no wheezing or crackles. ABDOMEN: Less distended, normoactive bowel sounds. No palpable organomegaly. Midline abdominal incision present as well as left quadrant ostomy with stool and gas noted MUSCULOSKELETAL: No joint swelling or deformity. EXTREMITIES: No cyanosis, clubbing, or pedal edema. NEUROLOGICAL: Gross neurological examination did not reveal any focal deficits. Diffusely weak SKIN: No rashes. 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 Ostomy nurse to continue to follow for ostomy education as patient will be going home on discharge Patient just had NG tube and Gagnon catheter removed, awaiting to void. Diet being advanced to regular per surgery and patient is slowly advancing as tolerated Home medications reviewed and resumed as appropriate Patient will need to resume anticoagulation once cleared by surgery as patient has extensive history of atrial fibrillation as well as DVT and PE, hematology/oncology is following and patient is maintained on subcutaneous Lovenox Hematology/oncology following and will be following up in the outpatient setting on discharge. Current treatment currently on hold given surgery and will follow-up once cleared by surgery Encourage increase activity as tolerated and frequent walking Continue to encourage incentive spirometer use at least 10 times every hour while awake We will await surgical clearance to discuss discharge planning. The impression and plan of care has been dictated by Katharine Dugan, nurse Practitioner as directed. Dr. Kacey MD I have performed a history and physical examination and medical decision making of this patient, discussed the same with the dictator, and agree with the dictators assessment and plan as written, documented as a scribe. Based on total visit time, I have performed more than 50% of this visit. Objective - Vital Signs Vital signs: Vital Signs Temp 98.7 F 06/05/25 07:42 Pulse 84 06/05/25 09:07 Resp 18 06/05/25 09:07 BP 116/66 06/05/25 07:42 Pulse Ox 95 06/05/25 07:42 FiO2 Intake & Output 06/04/25 06/05/25 06/05/25 18:59 06:59 18:59 Intake Total 300 240 Output Total 700 Balance -700 300 240 Intake: Oral 300 240 Output: Urine 700 Other: Voiding Method Indwelling Catheter Toilet Toilet - Labs CBC & Chem 7: 06/05/25 04:40 06/05/25 14:06 Labs: Abnormal Lab Results - Last 24 Hours (Table) 06/04/25 06/05/25 06/05/25 Range/Units 18:11 00:00 04:40 RBC 3.91 L (4.10-5.20) X 10*6/uL Hgb 10.9 L (12.0-15.0) g/dL Hct 35.0 L (37.2-46.3) % MCHC 31.1 L (32.0-37.0) g/dL RDW 19.9 H (11.5-14.5) % Plt Count 94 L (140-440) X 10*3/uL Potassium (3.5-5.5) mmol/L Carbon Dioxide (21.6-31.8) mmol/L BUN (9.0-27.0) mg/dL Creatinine (0.6-1.5) mg/dL BUN/Creatinine Ratio (12.00-20.00) Ratio Glucose (70-110) mg/dL POC Glucose (mg/dL) 126 H 136 H (70-110) mg/dL Calcium (8.7-10.3) mg/dL 06/05/25 06/05/25 Range/Units 04:40 05:43 RBC (4.10-5.20) X 10*6/uL Hgb (12.0-15.0) g/dL Hct (37.2-46.3) % MCHC (32.0-37.0) g/dL RDW (11.5-14.5) % Plt Count (140-440) X 10*3/uL Potassium 3.4 L (3.5-5.5) mmol/L Carbon Dioxide 20.6 L (21.6-31.8) mmol/L BUN 4.7 L (9.0-27.0) mg/dL Creatinine 0.4 L (0.6-1.5) mg/dL BUN/Creatinine Ratio 11.75 L (12.00-20.00) Ratio Glucose 120 H (70-110) mg/dL POC Glucose (mg/dL) 120 H (70-110) mg/dL Calcium 8.4 L (8.7-10.3) mg/dL
[2025-06-06 07:34] VITALS: RESP 16
[2025-06-06 08:36] LABS: HCT 32.8 % (37.2-46.3); HGB 10.2 g/dL (12.0-15.0); MCH 27.6 pg (27.0-32.0); MCHC 31.1 g/dL (32.0-37.0); MCV 88.6 FL (80.0-97.0); NRBC Per 100 WBC 0 X 10*3/uL (0.00-0.01); Platelet Count 118 X 10*3/uL (140-440); RBC 3.70 X 10*6/uL (4.10-5.20); RDW 19.6 % (11.5-14.5); WBC 4.08 X 10*3/uL (4.50-10.00)
--- NOTE | 2025-06-06 11:00 | P.PN ---
Subjective Progress Note Date: 06/06/25 Patient seen and examined at bedside. Comfortable. Pain controlled. Ostomy continues to function. Objective - Vital Signs Vital signs: Vital Signs Temp 98.8 F 06/06/25 07:38 Pulse 90 06/06/25 09:32 Resp 16 06/06/25 09:32 BP 116/72 06/06/25 07:38 Pulse Ox 95 06/06/25 07:38 FiO2 Intake & Output 06/05/25 06/06/25 06/06/25 18:59 06:59 18:59 Intake Total 240 240 Output Total 600 Balance 240 -600 240 Intake: Oral 240 240 Output: Stool 600 Other: Voiding Method Toilet Toilet # Voids 2 1 # Bowel Movements 1 - Constitutional General appearance: Present: cooperative - Gastrointestinal Gastrointestinal Comment(s): Soft, appropriate midline tenderness, ostomy pink patent and functioning - Psychiatric Psychiatric: Present: A&O x's 3 - Labs CBC & Chem 7: 06/06/25 04:58 06/05/25 14:06 Labs: Abnormal Lab Results - Last 24 Hours (Table) 06/05/25 06/06/25 Range/Units 13:39 04:58 WBC 4.08 L (4.50-10.00) X 10*3/uL RBC 3.70 L (4.10-5.20) X 10*6/uL Hgb 10.2 L (12.0-15.0) g/dL Hct 32.8 L (37.2-46.3) % MCHC 31.1 L (32.0-37.0) g/dL RDW 19.6 H (11.5-14.5) % Plt Count 118 L (140-440) X 10*3/uL POC Glucose (mg/dL) 132 H (70-110) mg/dL Assessment and Plan Plan: Postop day #3, diverting colostomy creation. Ostomy is functioning with significant output. Tolerating regular diet. Continue local wound care. Patient has been evaluated by ostomy team. Surgically stable for discharge with home ostomy care..
[2025-06-06 13:58] VITALS: BP 101/66; PULSE 74; TEMP 98.4
--- NOTE | 2025-06-11 17:35 | P.DS ---
Providers Date of admission: 06/01/25 13:30 Expected date of discharge: 06/06/25 Attending physician: Germain Bolivar MD Consults: 06/01/25 13:24 Consult Physician Urgent Consulting Provider: Lonny Plummer Consult Reason/Comments: Colon cancer patient Do you want consulting provider notified?: Yes Consult Physician Urgent Consulting Provider: Anup Hall Consult Reason/Comments: Large bowel obstruction Do you want consulting provider notified?: Yes 06/01/25 14:49 Consult Physician Urgent Consulting Provider: Jose Lopez Consult Reason/Comments: Cardiology risk stratification, large bowel obstruction Do you want consulting provider notified?: Yes Primary care physician: Mor Levine [place] [facility] Course: Final Diagnosis Large bowel obstruction status post diverting ostomy Metastatic colon adenocarcinoma, treatment currently on hold with oncology following Lactic acidosis, improved History of atrial fibrillation, currently rate controlled History 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 Patient has completed ostomy education and will be discharging home with home care services. Patient to follow up with general surgeon Dr. Hall in the office. Patient has an appointment with her PCP Dr. Levine on 06/08/25. Patient to follow up with oncology on June 28. Recommend to repeat BMP, CBC, magnesium 3 days post discharge. Hospital Course patient is a 59-year-old lady with past medical history significant for colon cancer on chemotherapy who presents the ER because of abdominal pain. Patient stated she was all right when on Wednesday she had a CT abdominal pelvis done with contrast, following that she started having nausea with vomiting. There was also complain of abdominal pain, abdominal pain was located in the lower quadrants, was intermittent, nonradiating, no aggravating or relieving factor associated with abdominal pain. Patient also noticed that she was not able to have a bowel movement. Patient was able to pass gas but no BM. Patient tried to use laxatives and lactulose with no relief. Patient did see her court of appeals judge oncologist yesterday and was prescribed additional medication with no relief. Because of these abdominal symptoms, patient came to the ER. Initial lab work done in the ER showed WBC 8.31, hemoglobin 14.9, platelet count 219, sodium 142, potassium 4.1, BUN 14, creatinine 0.58, lactate 2.3 bilirubin 1.4, AST 45, ALT 29, total protein 8.8. UA negative for infectio. CT abdominal pelvis done showed large bowel obstruction from stricture from primary chronic adenocarcinoma with metastatic disease within the liver, mesentery, pulm nodules Patient admitted to internal medicine service. General surgery and oncology on consult. Patient underwent diverting ostomy. Diet was advanced to regular and patient tolerating. Patient is making stool from the ostomy. Indwelling cruz catheter has been removed and patient urinating without difficulty. Patient has been encouraged to increase activity as tolerated and continue the use of incentive spirometer at least 10 times every hour while awake. She has been cleared for discharge home. patient is controlled with oral pain medications. Please see medication reconciliation for a list of current medications. Thank you for allowing us to participate in the care of this patient. The impression and plan of care has been dictated by Katharine Dugan, nurse Practitioner as directed. Dr. Kacey MD I have performed a history and physical examination and medical decision making of this patient, discussed the same with the dictator, and agree with the dictators assessment and plan as written, documented as a scribe. Based on total visit time, I have performed more than 50% of this visit. Patient Condition at Discharge: Stable Plan - Discharge Summary Discharge Rx Participant: No New Discharge Prescriptions: Continue HYDROcodone/APAP 10-325MG [[place] 10-325] 1 tab PO QID PRN PRN Reason: Pain Rivaroxaban [Xarelto] 10 mg PO DAILY carvediloL [Coreg] 12.5 mg PO BID Ondansetron [Zofran] 4 - 8 mg PO Q4H PRN MDD 32mg PRN Reason: Nausea Semaglutide [Ozempic] 0.5 mg SQ SA ALPRAZolam [Xanax] 0.5 mg PO BID PRN PRN Reason: Anxiety OLANZapine [ZyPREXA] 2.5 - 5 mg PO DIRECTED QUEtiapine FUMARATE [SEROquel] 300 mg PO HS Discharge Medication List HYDROcodone/APAP 10-325MG [[place] 10-325] 1 tab PO QID PRN 02/18/17 [History] ALPRAZolam [Xanax] 0.5 mg PO BID PRN 06/01/25 [History] OLANZapine [ZyPREXA] 2.5 - 5 mg PO DIRECTED 06/01/25 [History] Ondansetron [Zofran] 4 - 8 mg PO Q4H PRN MDD 32mg 06/01/25 [History] QUEtiapine FUMARATE [SEROquel] 300 mg PO HS 06/01/25 [History] Rivaroxaban [Xarelto] 10 mg PO DAILY 06/01/25 [History] Semaglutide [Ozempic] 0.5 mg SQ SA 06/01/25 [History] carvediloL [Coreg] 12.5 mg PO BID 06/01/25 [History] Follow up Appointment(s)/Referral(s): Murtaza Sage NPC [Nurse Practitioner] - 06/28/25 2:45 pm [facility] [REFERRING] - 1 Week [facility] within 24-48hrs of discharge. Phone [phone]*) Mor Levine [Primary Care Provider] - 06/08/25 11:00 am Anup Hall DO [Doctor of Osteopathic Medicine] - 06/12/25 10:45 am Ambulatory/Diagnostic Orders: Basic Metabolic Panel [LAB.AMB] Location: None Selected Complete Blood Count w/diff [LAB.AMB] Time Frame: 3 Days, Location: None Real kyle Magnesium [LAB.AMB] Location: None Selected Patient Instructions/Handouts: Colostomy Care (DC), Bowel Obstruction (DC), Colectomy (DC) Activity/Diet/Wound Care/Special Instructions: Ostomy: Kyrie 1 piece cut to fit convex appliance #[id number]; utilize barrier ring #[id number] for any leaks. Non sting skin prep and stoma powder PRN for irritation. Change every 3 to 5 days and if needed for leaking. Empty when half full. Last changed: 06/06/25 Bloodwork in s days at location of choice/Home health nurse can draw blood. Discharge Disposition: HOME WITH HOME HEALTH SERVICES
== END 2025-06-06 14:00 | disposition home health service (06) | DRG 231 ==
LOC: EC 11:03 → 5NMEDONC 13:30
PROVIDERS: ADMIT Internal Medicine; ATTEND Internal Medicine
PROC: 0D1L0Z4 Bypass Transverse Colon to Cutaneous, Open Approach (ICD-10-PCS; principal; 2025-06-03 09:00)
PROC: 0DNW0ZZ Release Peritoneum, Open Approach (ICD-10-PCS; principal; 2025-06-03 09:00)
DX: K56.50 Intestinal adhesions [bands], unspecified as to partial versus complete obstruction (principal); C18.6 Malignant neoplasm of descending colon; C78.6 Secondary malignant neoplasm of retroperitoneum and peritoneum; C78.7 Secondary malignant neoplasm of liver and intrahepatic bile duct; C78.02 Secondary malignant neoplasm of left lung; C78.01 Secondary malignant neoplasm of right lung; D68.51 Activated protein C resistance; E11.9 Type 2 diabetes mellitus without complications; E66.9 Obesity, unspecified; E87.20 Acidosis, unspecified; F32.A Depression, unspecified; F41.9 Anxiety disorder, unspecified; I11.0 Hypertensive heart disease with heart failure; K59.00 Constipation, unspecified; I48.91 Unspecified atrial fibrillation; R00.1 Bradycardia, unspecified; I50.9 Heart failure, unspecified; K55.059 Acute (reversible) ischemia of intestine, part and extent unspecified; Z53.31 Laparoscopic surgical procedure converted to open procedure; Z68.30 Body mass index [BMI] 30.0-30.9, adult; Z79.01 Long term (current) use of anticoagulants; Z79.899 Other long term (current) drug therapy; Z86.711 Personal history of pulmonary embolism; Z86.718 Personal history of other venous thrombosis and embolism; Z87.891 Personal history of nicotine dependence; Z92.21 Personal history of antineoplastic chemotherapy; Z95.0 Presence of cardiac pacemaker; Z88.8 Allergy status to other drugs, medicaments and biological substances; Z91.040 Latex allergy status; Z79.85 Long-term (current) use of injectable non-insulin antidiabetic drugs; Z90.79 Acquired absence of other genital organ(s)
CPT/HCPCS: 36415; 74176; 80048; 80053; 81001; 82150; 83605; 83690; 83735; 84132; 85025; 85027; 86850; 86900; 86901; 93005; 96361; 96374; 96375; 96376; 99285